=== PATIENT | male | born 1940 | race Caucasian/White ===

== ENCOUNTER 2017-09-06 08:30 | Inpatient (IN) | payer MEDICARE, OTHER ==
[~2017-09-06] VITALS: Ht 190.5 cm; Wt 110.0 kg
[~2017-09-06 08:30] MED LIST: AMLO5TAB2 PO; CYCL10TA PO; FISH500C PO; HYDR-3580 PO; IODI150T PO; MAPA325T PO; OCUVTAB4 PO; VIAG100T PO; VITA1CAP7 PO; VITA400T20 PO; VITACAP7 PO
[2017-10-07] VITALS (8 sets, daily range): BP systolic 123–152; BP diastolic 62–98; PULSE 72–83; RESP 16–18; TEMP 97.4; O2SAT 95–96
[2017-10-07 09:18] LABS: AUTOMATED NEUTROPHIL # 5.3 TH/MM3 (1.8-7.7); BASOPHIL # 0.1 TH/MM3 (0-0.2); BASOPHIL % 0.7 % (0.0-2.0); EOSINOPHIL # 0.2 TH/MM3 (0-0.4); HEMATOCRIT 44.6 % (39.0-51.0); HEMOGLOBIN 15.2 GM/DL (13.0-17.0); LYMPH % 32.8 % (9.0-44.0); LYMPHOCYTE # 3.1 TH/MM3 (1.0-4.8); MEAN CORPUSCULAR HGB CONC 34.1 % (32.0-36.0); MONO % 9.4 % (0.0-8.0); MONOCYTE # 0.9 TH/MM3 (0-0.9); NEUT % 55.1 % (16.0-70.0); PLATELET COUNT 201 TH/MM3 (150-450); RED BLOOD COUNT 5.07 MIL/MM3 (4.50-5.90); RED CELL DISTRIBUTION WIDTH 13.6 % (11.6-17.2); WHITE BLOOD COUNT 9.6 TH/MM3 (4.0-11.0)
[2017-10-07 09:30] LABS: PROTHROMBIN TIME - PATIENT 10.1 SEC (9.8-11.6)
[2017-10-07] MEDS ORDERED: LACTATED RINGER'S 1000 ML IV PRN (09:30)
[2017-10-07] MEDS ORDERED: CHLORHEXIDINE GLUCONATE 2 % 1 PACK (2 CLOTHS) TOPICAL PRN (09:30)
[2017-10-07] MEDS ORDERED: POVIDONE IODINE 5% (ANTISEPSIS KIT) 4 APPLICATIONS EACH NARE PRN (09:30)
[2017-10-07] MEDS ORDERED: ceFAZolin 1,000 MG/NS 100 ML IV SCH ×2 (09:30)
[2017-10-07] MEDS ORDERED: METOPROLOL TARTRATE 25 MG TAB PO PRN (09:30)
[2017-10-07] MEDS ORDERED: SODIUM CHLORID 0.9% 500 ML IV PRN (09:30)
[2017-10-07 09:34] LABS: ALBUMIN 3.8 GM/DL (3.4-5.0); AST (GOT) 20 U/L (15-37); BICARBONATE 28.5 MEQ/L (21.0-32.0); BLOOD UREA NITROGEN 15 MG/DL (7-18); CALCIUM 8.8 MG/DL (8.5-10.1); CHLORIDE 105 MEQ/L (98-107); CREATININE 1.06 MG/DL (0.60-1.30); GLOMERULAR FILTRATION RATE 68 ML/MIN (>89); GLUCOSE,RANDOM 100 MG/DL (74-106); SODIUM (NA) 140 MEQ/L (136-145)
[2017-10-07 09:35] LABS: ALT (GPT) 27 U/L (12-78)
[2017-10-07 09:37] LABS: ALKALINE PHOSPHATASE 124 U/L (45-117); TOTAL BILIRUBIN ADULT 0.5 MG/DL (0.2-1.0); TOTAL PROTEIN 7.7 GM/DL (6.4-8.2)
[2017-10-07] MEDS ORDERED: PROTAMINE SULFATE 50 MG/5 ML VIAL ONE (11:58)
[2017-10-07] MEDS ORDERED: HEPARIN SODIUM - IV 10,000 UNITS/10 ML VIAL ONE (11:58)
[2017-10-07] MEDS ORDERED: BUPIVACAINE/EPINEPHRINE 0.5% PF 30 ML VIAL ONE (11:59)
[2017-10-07] MEDS ORDERED: ACETAMINOPHEN 1000 MG/100 ML 100 ML IV ONE (11:59)
[2017-10-07] MEDS ORDERED: HEPARIN SODIUM - SQ 10,000 UNITS/ML VIAL ONE (11:59)
[2017-10-07] MEDS ORDERED: DEXAMETHASONE SOD PHOS 4 MG/ML VIAL IV ONE (12:00)
[2017-10-07] MEDS ORDERED: PHENYLEPH/NS 1000 MCG/10 ML SYR IV ONE (12:00)
[2017-10-07] MEDS ORDERED: LIDOCAINE HCL 1% PF 5 ML SYRINGE OTHER ONE (12:00)
[2017-10-07] MEDS ORDERED: NEOSTIGMINE 5 MG/5 ML SYRINGE IV PUSH ONE (12:00)
[2017-10-07] MEDS ORDERED: SOD CH 0.9%(ARTERIAL)500ML INJ 500 ML ONE (12:00)
[2017-10-07] MEDS ORDERED: GLYCOPYRROLATE 1 MG/5 ML SYRINGE IV PUSH ONE (12:00)
[2017-10-07] MEDS ORDERED: PROPOFOL 200 MG/20 ML AMP IV ONE (12:00)
[2017-10-07] MEDS ORDERED: ROCURONIUM INJ 50 MG/5 ML SYRINGE IV PUSH ONE (12:00)
[2017-10-07] MEDS ORDERED: ePHEDrine/NS 25 MG/5 ML SYRINGE IV ONE (12:00)
[2017-10-07] MEDS ORDERED: NORMOSOL R INJ 2,000 ML IV ONE (12:00)
[2017-10-07] MEDS ORDERED: PHENYLEPHRINE HCL 10 MG/ML VIAL IV ONE (12:00)
[2017-10-07] MEDS ORDERED: IOHEXOL 350 MG/ML 100 ML BTL (for RAD DIAG) OTHER ONE (13:21)
[2017-10-07] MEDS ORDERED: MIDAZOLAM HCL 2 MG/2 ML VIAL ONE (15:06)
[2017-10-07] MEDS ORDERED: DO NOT ADM ANY ANTICOAGULANT DRUGS PRN (15:29)
[2017-10-07] MEDS ORDERED: *ONDANSETRON 4 MG VIAL PERIprocedural Use ONLY ONE (16:08)
--- NOTE | 2017-10-07 16:40 | EKG ---
Date Performed: 10/07/2017 Time Performed: 08:45:30 PTAGE: 76 years EKG: Sinus rhythm with frequent multifocal PVCs with 1st degree A-V block. Inferior T wave changes are nonspecific Abn ormal ECG PREVIOUS TRACING : 08/01/2015 10.41 Since previous tracing, no significant change noted DOCTOR: Víctor Tripp Interpretating Date/Time 10/07/2017 16:39:50
[2017-10-07] MEDS ORDERED: MORPHINE SULFATE 2 MG/ML INJ IV PUSH PRN (16:45)
[2017-10-07] MEDS ORDERED: METOPROLOL TARTRATE 5 MG/5 ML VIAL IV PUSH PRN (16:45)
[2017-10-07] MEDS ORDERED: VIAGRA 100 MG PO PRN (16:45)
[2017-10-07] MEDS ORDERED: ONDANSETRON HCL 4 MG/2 ML VIAL IV PUSH PRN (16:45)
[2017-10-07] MEDS ORDERED: LACTATED RINGER'S 1000 ML INJ 500 ML IV ONE (17:00)
[2017-10-07] MEDS ORDERED: ACETAMINOPHEN/HYDROcodone 325 MG/7.5 MG TAB PO PRN (17:45)
[2017-10-08] VITALS (14 sets, daily range): BP systolic 126–151; BP diastolic 66–75; PULSE 75–101; RESP 16; TEMP 97.6–98.1; O2SAT 93–96
[2017-10-08] MEDS ORDERED: ASPIRIN 81 MG CHEW TAB PO SCH (09:00)
[2017-10-08] MEDS ORDERED: amLODIPine BESYLATE 5 MG TAB PO SCH (09:00)
--- NOTE | 2017-10-11 14:44 | MP ---
cc: LILY LINCOLN M.D., JAMES DATE OF SURGERY 10/11/2017 PREOPERATIVE DIAGNOSIS Abdominal aortic aneurysm. POSTOPERATIVE DIAGNOSIS Abdominal aortic aneurysm. PROCEDURE Percutaneous endovascular aneurysm repair. SURGEON Vasile Rodriguez MD ANESTHESIA General. DESCRIPTION OF THE OPERATIVE PROCEDURE With the patient in the supine position, general anesthesia was induced, the lower abdomen, both groins and thighs prepped with Betadine and draped in a sterile fashion. One gram of Ancef was administered intravenously and, following a protocol time-out, the skin and subcutaneous tissue overlying and surrounding the right and left mid-common femoral arteries preemptively infiltrated with 0.5% Marcaine with epinephrine. The common femoral arteries were accessed identically as follows: Utilizing ultrasound guidance, 18 gauge needles were inserted in each mid-common femoral lumen, J-wires advanced under fluoroscopic guidance through the external iliac arteries and 7-Ivorian hemostatic sheaths deployed bilaterally. Angled glide wires were advanced under fluoroscopic guidance into the suprarenal aorta. Perclose devices were pre-positioned at the 10 and 2 o'clock positions bilaterally. The 7-Ivorian hemostatic sheaths were redeployed. The angled glide wires were exchanged for Amplatz guidewires which were parked within the thoracic aorta. An 18 and 12-Ivorian hemostatic dry seal sheaths were deployed via the right and left common femoral approaches respectively. A pigtail catheter was guided via the left femoral sheath into the suprarenal aorta and flush aortogram accurately delineated the origin of the renal arteries. The main body endoprosthesis was then position and initially deployed immediately distal to the renal arteries. The contralateral gate was engaged with an angled glide Berenstein correction with an angled glide Berenstein catheter combination. A 250 balloon was inflated within the endoprosthetic lumen to ensure intraluminal localization. The pigtail catheter was replaced via the left femoral sheath into the endoprosthetic lumen and retrograde left iliac arteriogram identified the left iliac bifurcation and allowed for appropriate length measurements for the contralateral limb. The contralateral limb was then introduced and deployed. The aortic deployment was completed, followed by placement of a right external progression followed by placement of a right iliac limb extension after retrograde right iliac angiogram identified the right iliac bifurcation and allowed for appropriate limb bellows tester length selection. The aortic, iliac seal areas and overlap regions were then gently balloon dilated with a 250 balloon. Completion angiogram revealed no technical defects or endoleaks. It should be noted that after placement of the hemostatic sheath, the patient was systemically heparinized with 5000 units. At the completion of the procedure heparin was reversed with 20 mg of protamine. The right and left femoral sheaths were removed and the pre-deployed Perclose devices activated with secure hemostasis bilaterally. Doppler flow remained unchanged within the pedal arteries. The patient was returned to the recovery room in stable condition having tolerated the procedure well. Kai Rodriguez MD JTS/SSB /12:48 PM /1:05 PM
== END 2017-10-08 13:02 | disposition home or self-care (01) | DRG 269 ==
LOC: HSDI 10-07 08:14 → HCPC 10-07 16:57
PROVIDERS: ADMIT Surgery Vascular Surgery; ATTEND Surgery Vascular Surgery
PROC: B41G1ZZ Fluoroscopy of Left Lower Extremity Arteries using Low Osmolar Contrast (ICD-10-PCS; 2017-10-07)
PROC: 04V03DZ Restriction of Abdominal Aorta with Intraluminal Device, Percutaneous Approach (ICD-10-PCS; principal; 2017-10-07 12:31)
PROC: B4101ZZ Fluoroscopy of Abdominal Aorta using Low Osmolar Contrast (ICD-10-PCS; 2017-10-07 12:31)
DX: I71.4 Abdominal aortic aneurysm, without rupture (principal); I10 Essential (primary) hypertension; E78.5 Hyperlipidemia, unspecified; Z87.891 Personal history of nicotine dependence
CPT/HCPCS: 76937; 80053; 85025; 85610; 85730; 86850; 86900; 86901; 93005; C1725; C1769; J0131; J0690; J1100; J1644; J2250; J2370; J2405; J2710; J2720; J3010; J7040; J7120; Q9967

== ENCOUNTER 2018-02-03 07:44 | Inpatient (IN) | payer MEDICARE, OTHER ==
[~2018-02-03] VITALS: Ht 190.5 cm; Wt 99.0 kg
[2018-02-03] VITALS (8 sets, daily range): BP systolic 128–175; BP diastolic 64–91; PULSE 73–109; RESP 16–24; TEMP 97.5–97.8; O2SAT 97–98
--- NOTE | 2018-02-03 08:13 | PD ---
HPI Chief Complaint: Neuro Symptoms/ Deficits Time Seen by Provider: 07:52 Travel History International Travel<30 days: No Contact w/Intl Traveler<30days: No Traveled to known affect area: No History of Present Illness HPI This patient went to bed feeling his usual self. He woke up at 3:30 AM and reported that he could not move his left arm or his left leg. He says he laid there for about 1 hour and then he started to improve. He still has weakness of the left arm and leg but he can move them now. He reports that he had some slurring of speech. He denies headache or head injury. No prior history of stroke. He supposed to be taking a baby aspirin daily but says he is very noncompliant and does not like to take it. He last took it 4 days ago. No chest pain. Symptom severity is moderately severe. No alleviating factors. No exacerbating factors. Duration is unknown as it happened during sleep. It has been 4-1/2 hours since he woke up with the symptoms. He does not meet stroke alert criteria PFSH Past Medical History Arthritis: Yes (BACK AND KNEES) Asthma: No Autoimmune Disease: No Heart Rhythm Problems: Yes (ECTOPIC BEATS) Cancer: No Cardiac Catheterization: Yes Cardiovascular Problems: Yes (CAD, HX OF MS 2004, IRREGULAR HEARTBEAT, MULTI ETOPIC BEATS) High Cholesterol: Yes Chest Pain: Yes COPD: No Diabetes: No Endocrine: No Genitourinary: No Hepatitis: No Hiatal Hernia: No Hypertension: Yes Immune Disorder: No Musculoskeletal: Yes (UNSTABLE GAIT, SEVERE OSTEOARTHRITIS, SPINAL STENOSIS, ESTEFANI CERVICAL SPINE) Neurologic: Yes (NEUROPATHY LEGS AND FEET, TREMORS MORE ON RIGHT HAND) Psychiatric: Yes (CLAUSTROPHOBIC FOR MRI) Reproductive: Yes (ED) Respiratory: Yes (SLEEP APNEA NO MACHINE) Sleep Apnea: Yes Thyroid Disease: No Influenza Vaccination: Yes Past Surgical History Abdominal Surgery: Yes (AAA, GRAFTED SEP 2017) AICD: No Body Medical Devices: LAD CARDIAC STENT Cardiac Surgery: Yes (LAD CARDIAC STENT 2004, HEART CATH) Ear Surgery: No Endocrine Surgery: No Eye Surgery: No Genitourinary Surgery: No Joint Replacement: No Oral Surgery: Yes (TONSILLECTOMY 1952) Pacemaker: No Thoracic Surgery: No Tonsillectomy: Yes Other Surgery: Yes Social History Alcohol Use: Yes (OCCASIONALLY) Tobacco Use: No (QUIT 2004) Substance Use: No Allergies-Medications (Allergen,Severity, Reaction): Coded Allergies: niacin (Unverified Adverse Reaction, Severe, 10/07/17) PATIENT DOES NOT LIKE TO TAKE atorvastatin (Unverified Adverse Reaction, Mild, 10/07/17) PATIENT DOES NOT LIKE TO TAKE fenofibrate (Unverified Adverse Reaction, Mild, 10/07/17) PATIENT DOES NOT LIKE TO TAKE metoprolol (Unverified Adverse Reaction, Mild, 10/07/17) PATIENT DOES NOT LIKE TO TAKE pravastatin (Unverified Adverse Reaction, Mild, 10/07/17) PATIENT DOES NOT LIKE TO TAKE simvastatin (Unverified Adverse Reaction, Mild, 10/07/17) PATIENT DOES NOT LIKE TO TAKE Reported Meds & Prescriptions Reported Meds & Active Scripts Active Reported B Complex (B-Complex Vitamins) 1 Cap 1 Cap PO DAILY Flexeril (Cyclobenzaprine HCl) 10 Mg Tab 10 Mg PO TID PRN Vitamin A (Vitamin A Palmitate) 10,000 Unit Capsule 1 Cap PO DAILY Mapap (Acetaminophen) 325 Mg Tab 325 Mg PO Q4-6H PRN Fish Oil ([place]-3 Fatty Acids) 60 Mg-90 Mg-500 Mg Cap 1 Cap PO DAILY Preservision Areds (Multiple Vitamins W/ Minerals) 1 Tab 1 Tab PO DAILY Kelp (Iodine) 150 Mcg Tablet 1 Tab PO DAILY Viagra (Sildenafil Citrate) 100 Mg Tab 100 Mg PO DAILY PRN Vitamin E (Vitamin E Mixed) 400 Unit Tablet 800 Unit PO DAILY Hydrocodone-Acetaminophen 7.5 Mg-325 Mg Tab 1 Tab PO Q4H PRN Amlodipine (Amlodipine Besylate) 5 Mg Tab 5 Mg PO DAILY Review of Systems General / Constitutional: No: Fever Eyes: No: Visual changes HENT: No: Headaches Cardiovascular: No: Chest Pain or Discomfort Respiratory: No: Shortness of Breath Gastrointestinal: No: Abdominal Pain Genitourinary: No: Dysuria Musculoskeletal: No: Pain Skin: No Rash Neurologic: Positive: Weakness, Slurred Speech Psychiatric: No: Depression Endocrine: No: Polydipsia Hematologic/Lymphatic: No: Easy Bruising Physical Exam Narrative GENERAL: Well-nourished, well-developed patient in no apparent distress. SKIN: Focused skin assessment reveals no rash and nodules. Skin is Warm and dry. HEAD: Atraumatic. Normocephalic. EYES: Pupils equal and round. No scleral icterus. No injection or drainage. ENT: No nasal bleeding or discharge. Mucous membranes pink and moist. NECK: Trachea midline. No JVD. CARDIOVASCULAR: Regular rate and rhythm. Frequent ectopic beats noted. No murmur appreciated. RESPIRATORY: No accessory muscle use. Clear to auscultation. Breath sounds equal bilaterally. GASTROINTESTINAL: Abdomen soft, non-tender, nondistended. Hepatic and splenic margins not palpable. MUSCULOSKELETAL: No obvious deformities. No clubbing. No cyanosis. No edema. NEUROLOGICAL: Awake and alert. Has a left-sided facial droop. Motor exam and demonstrates weakness of the left arm and left leg. Understandable speech. Sensation subjectively intact. PSYCHIATRIC: Appropriate mood and affect; insight and judgment normal. Data Data Last Documented VS Vital Signs Date Time Temp Pulse Resp B/P (MAP) Pulse Ox O2 Delivery O2 Flow Rate FiO2 02/03/18 11:15 80 21 155/91 (112) 98 Nasal Cannula 2.00 02/03/18 08:02 97.5 Orders Orders Electrocardiogram (02/03/18 08:01) Prothrombin Time / Inr (Pt) (02/03/18 08:01) Act Partial Throm Time (Ptt) (02/03/18 08:01) Complete Blood Count With Diff (02/03/18 08:01) Basic Metabolic Panel (Bmp) (02/03/18 08:01) Ct Brain W/O Iv Contrast(Rout) (02/03/18 08:01) Ecg Monitoring (02/03/18 08:01) Iv Access Insert/Monitor (02/03/18 08:01) Oximetry (02/03/18 08:01) Sodium Chloride 0.9% Flush (Ns Flush) (02/03/18 08:15) Aspirin (Aspirin) (02/03/18 10:00) Admit To Inpatient (02/03/18 ) Vital Signs (Adult) Q4H (02/03/18 12:16) Nih Stroke Scale - Nihss .On admission and discharge (02/03/18 12:16) Neuro Checks Q4H (02/03/18 12:16) Notify Dr: Other (02/03/18 12:16) Ot Request For Service (02/03/18 12:16) Consult Pt Eval & Treat (02/03/18 12:16) Speech Therapy Consult-Eval/Tx (02/03/18 12:16) Case Management Consult (02/03/18 ) Activity Bed Rest (02/03/18 12:16) Nursing Bedside Swallow Assess .ONCE (02/03/18 12:16) Scd Bilateral/Knee High ANTHONY.QSHIFT (02/03/18 12:16) Diet Npo (02/03/18 Lunch) Hemoglobin (Hgb) A1c (02/03/18 12:16) Lipid Profile (02/04/18 06:00) Us Carotid Arteries Comp Bilat (02/03/18 ) Mra Brain W/O Contrast (Cow) (02/03/18 ) Mri Brain W/O Contrast (02/03/18 ) Echo 2d Comp With Doppler (02/03/18 ) Resp Oxygen Nc Stroke (02/03/18 ) ^ Hold Medication (02/03/18 12:16) Consult Neurology (02/03/18 ) Sodium Chloride 0.9% Flush (Ns Flush) (02/03/18 21:00) Sodium Chloride 0.9% Flush (Ns Flush) (02/03/18 12:30) Enalaprilat Inj (Vasotec Inj) (02/03/18 12:30) Aspirin Chew (Aspirin Chew) (02/04/18 09:00) Enoxaparin Inj (Lovenox Inj) (02/03/18 20:00) Bedside Glucose ANTHONY.CSUGAR (02/03/18 12:16) ^ Discontinue Insulin Orders (02/03/18 12:16) Insulin Aspart Supplemtl Scale (Novolog (02/03/18 17:00) Dextrose 50% In Kyle (Vial) Inj (D50w (Vi (02/03/18 12:30) Glucagon Inj (Glucagon Inj) (02/03/18 12:30) Consult Rehab Medicine (02/03/18 12:16) Anthropology Faculty Member / Telemetry ANTHONY.Q8H (02/03/18 12:16) Consult Stroke Navigator (02/03/18 ) Inpatient Certification (02/03/18 ) (Hub Use Only)Inp Phy Cons/Ref (02/03/18 ) (Hub Use Only)Inp Phy Cons/Ref (02/03/18 ) Labs Laboratory Tests Test 02/03/18 07:55 White Blood Count 7.9 TH/MM3 Red Blood Count 5.53 MIL/MM3 Hemoglobin 16.2 GM/DL Hematocrit 47.7 % Mean Corpuscular Volume 86.3 FL Mean Corpuscular Hemoglobin 29.2 PG Mean Corpuscular Hemoglobin Concent 33.9 % Red Cell Distribution Width 13.9 % Platelet Count 170 TH/MM3 Mean Platelet Volume 9.5 FL Neutrophils (%) (Auto) 67.9 % Lymphocytes (%) (Auto) 24.3 % Monocytes (%) (Auto) 5.8 % Eosinophils (%) (Auto) 1.5 % Basophils (%) (Auto) 0.5 % Neutrophils # (Auto) 5.4 TH/MM3 Lymphocytes # (Auto) 1.9 TH/MM3 Monocytes # (Auto) 0.5 TH/MM3 Eosinophils # (Auto) 0.1 TH/MM3 Basophils # (Auto) 0.0 TH/MM3 CBC Comment DIFF FINAL Differential Comment Prothrombin Time 10.6 SEC Prothromb Time International Ratio 1.0 RATIO Activated Partial Thromboplast Time 24.9 SEC Blood Urea Nitrogen 19 MG/DL Creatinine 1.11 MG/DL Random Glucose 150 MG/DL Calcium Level 9.1 MG/DL Sodium Level 141 MEQ/L Potassium Level 4.4 MEQ/L Chloride Level 106 MEQ/L Carbon Dioxide Level 27.3 MEQ/L Anion Gap 8 MEQ/L Estimat Glomerular Filtration Rate 64 ML/MIN MDM Medical Decision Making Medical Screen Exam Complete: Yes Emergency Medical Condition: Yes Medical Record Reviewed: Yes Differential Diagnosis Ischemic CVA, hemorrhagic CVA, TIA Narrative Course I have reviewed the patient's electronic medical record. Patient was here in September 2017 and had stenting of AAA Patient's presentation is consistent with acute stroke. However he does not meet stroke alert criteria. I reviewed his EKG which shows sinus rhythm with PVCs. I have ordered labs and brain scan Brain scan is negative Other labs are reviewed I gave him an aspirin Patient will require admission for acute ischemic stroke I reviewed with medical residents Multiple rechecks done and repeat neurologic evaluations done Critical Care Narrative Aggregate critical care time was 34 minutes. Time to perform other separately billable procedures was not included in the critical care time. My time did not include minutes spent treating any other patients simultaneously or on activities that did not directly contribute to the patient's treatment. The services I provided to this patient were to treat and/or prevent clinically significant deterioration that could result in: Permanent neurologic deficit, brain stem herniation, cardiopulmonary arrest I provided critical care services requiring my management, as noted below: Chart data review, documentation time, medication orders and management, vital sign assessments/reviewing monitor data, ordering and reviewing lab tests, ordering and interpreting/reviewing x-rays and diagnostic studies, care of the patient and discussion of the patient with the admitting physicians. Diagnosis Primary Impression: Acute ischemic stroke Admitting Information Admitting Physician Requests: it Charlie Sherman MD February 03, 2018 08:13
[2018-02-03] MEDS ORDERED: SODIUM CHLORIDE 0.9% FLUSH 10 ML FLUSH IVF PRN (08:15)
[2018-02-03 08:25] LABS: AUTOMATED NEUTROPHIL # 5.4 TH/MM3 (1.8-7.7); BASOPHIL % 0.5 % (0.0-2.0); EOSINOPHIL # 0.1 TH/MM3 (0-0.4); EOSINOPHIL % 1.5 % (0.0-4.0); HEMATOCRIT 47.7 % (39.0-51.0); HEMOGLOBIN 16.2 GM/DL (13.0-17.0); LYMPH % 24.3 % (9.0-44.0); LYMPHOCYTE # 1.9 TH/MM3 (1.0-4.8); MEAN CELL VOLUME 86.3 FL (80.0-100.0); MEAN CORPUSCULAR HEMOGLOBIN 29.2 PG (27.0-34.0); MEAN CORPUSCULAR HGB CONC 33.9 % (32.0-36.0); MEAN PLATELET VOLUME 9.5 FL (7.0-11.0); MONO % 5.8 % (0.0-8.0); MONOCYTE # 0.5 TH/MM3 (0-0.9); NEUT % 67.9 % (16.0-70.0); PLATELET COUNT 170 TH/MM3 (150-450); RED BLOOD COUNT 5.53 MIL/MM3 (4.50-5.90); RED CELL DISTRIBUTION WIDTH 13.9 % (11.6-17.2); WHITE BLOOD COUNT 7.9 TH/MM3 (4.0-11.0)
[2018-02-03 08:49] LABS: PROTHROMBIN TIME - PATIENT 10.6 SEC (9.8-11.6)
[2018-02-03 08:54] LABS: BICARBONATE 27.3 MEQ/L (21.0-32.0); CALCIUM 9.1 MG/DL (8.5-10.1); CREATININE 1.11 MG/DL (0.60-1.30)
--- NOTE | 2018-02-03 09:23 | RADRPT ---
EXAM DATE/TIME: 02/03/2018 08:49 [facility] COMPARISON: No previous studies available for comparison. INDICATIONS : Syncope today, left sided weakness. RADIATION DOSE: 49.96 CTDIvol (mGy) MEDICAL HISTORY : Cardiovascular disease. Hypertension. AAA SURGICAL HISTORY : AAA repair ENCOUNTER: Initial ACUITY: 1 day PAIN SCALE: 0/10 LOCATION: cranial TECHNIQUE: Multiple contiguous axial images were obtained of the head. Using automated exposure control and adj ustment of the mA and/or kV according to patient size, radiation dose was kept as low as reasonably a chievable to obtain optimal diagnostic quality images. DICOM format image data is available electro nically for review and comparison. FINDINGS: CEREBRUM: The ventricles are normal for age. No evidence of midline shift, mass lesion, hemorrhage or acute in farction. No extra-axial fluid collections are seen. POSTERIOR FOSSA: The cerebellum and brainstem are intact. The 4th ventricle is midline. The cerebellopontine angle i s unremarkable. EXTRACRANIAL: The visualized portion of the orbits is intact. SKULL: The calvaria is intact. No evidence of skull fracture. CONCLUSION: Normal examination for a patient of this age. Larry Rodriguez MD on February 03, 2018 at 9:15 Board Certified Radiologist. This report was verified electronically.
[2018-02-03] MEDS ORDERED: ASPIRIN 325 MG TAB PO ONE (10:00)
--- NOTE | 2018-02-03 12:14 | HHI.HP ---
[facility] Service Family Medicine Primary Care Physician Phyllis Lizarraga MD Admission Diagnosis Diagnoses: International Travel<30 Days: No Contact w/Intl Traveler<30days: No Known Affected Area: No History of Present Illness 77 yo M with PMH of CAD w/ OH in 2004, AAA graft in September of 2017, osteoarthritis, spinal stenosis presenting to ED after he woke up at 3:30 AM and reported that he could not move his left arm or his left leg. He was unable to walk at that time. He states his R side was weak as well, but that gradually improved over the next several hours. L side has continued to be weak. Believes his R side is back at baseline. He reports that he had some slurring of speech. He denies headache or head injury. He does endorse double vision - improved with closing his R eye. No chest pain, SOB. No prior history of stroke. Has had some dizziness since his AAA repair in September. He is supposed to be taking a baby aspirin daily but says he is very noncompliant and does not like to take it. He last took it 4 days ago. (Wilberto Nogueira MD R1) Review of Systems Constitutional: COMPLAINS OF: Dizziness, DENIES: Fever, Chills Eyes: COMPLAINS OF: Vision loss (macular degeneration), Double Vision, DENIES: Eye pain Ears, nose, mouth, throat: DENIES: Tinnitus, Throat pain, Running Nose Respiratory: COMPLAINS OF: Cough (chronic), Wheezing (chronic), Sputum production (chronic) Cardiovascular: DENIES: Chest pain, Palpitations Gastrointestinal: COMPLAINS OF: Black stools (chronic), Bloody stools (states it is chronic. ), DENIES: Abdominal pain, Nausea, Vomiting Genitourinary: DENIES: Hematuria, Dysuria Musculoskeletal: DENIES: Joint pain, Muscle aches Neurologic: COMPLAINS OF: Localized weakness, DENIES: Headache, Paresthesias, Seizures Psychiatric: DENIES: Confusion (Wilberto Nogueira MD R1) Past Family Social History Past Medical History CAD with OH in 2004 AAA repair in September 2017 Ectopic beats Osteoarthritis Spinal stenosis Peripheral neuropathy Macular degeneration bilaterally Past Surgical History AAA graft in September 2017 LAD cardiac stent in 2004 Tonsillectomy (Wilberto Nogueira MD R1) Allergies: Coded Allergies: niacin (Unverified Adverse Reaction, Severe, 10/07/17) PATIENT DOES NOT LIKE TO TAKE atorvastatin (Unverified Adverse Reaction, Mild, 10/07/17) PATIENT DOES NOT LIKE TO TAKE fenofibrate (Unverified Adverse Reaction, Mild, 10/07/17) PATIENT DOES NOT LIKE TO TAKE metoprolol (Unverified Adverse Reaction, Mild, 10/07/17) PATIENT DOES NOT LIKE TO TAKE pravastatin (Unverified Adverse Reaction, Mild, 10/07/17) PATIENT DOES NOT LIKE TO TAKE simvastatin (Unverified Adverse Reaction, Mild, 10/07/17) PATIENT DOES NOT LIKE TO TAKE Family History Unsure Social History Lives at home alone 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 Notable slurred speech SKIN: No rashes, ecchymoses or lesions. Cool and dry. HEAD: Atraumatic. Normocephalic. No temporal or scalp tenderness. EYES: Pupils equal round and reactive. Extraocular motions intact. No scleral icterus. No injection or drainage. ENT: Nose without bleeding, purulent drainage or septal hematoma. Throat without erythema, tonsillar hypertrophy or exudate. Uvula midline. Airway patent. NECK: Trachea midline. No JVD or lymphadenopathy. Supple, nontender, no meningeal signs. CARDIOVASCULAR: Irregularly irregular with no murmurs appreciated RESPIRATORY: Clear to auscultation. Breath sounds equal bilaterally. No wheezes , rales, or rhonchi. GASTROINTESTINAL: Abdomen soft, non-tender, nondistended. No hepato-splenomegaly , or palpable masses. No guarding. MUSCULOSKELETAL: Extremities without clubbing, cyanosis, or edema. No joint tenderness, effusion, or edema noted. No calf tenderness. Negative Homans sign bilaterally. NEUROLOGICAL: Awake and alert. Patient noted to have asymmetric smile with left facial droop. Decreased orbicularis oculi strength on the left. Decreased sensation in the V3 trigeminal nerve branch on the left. Weak shoulder shrug on the left. 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 He is able to lift the left arm/leg passively but is weak against resistance. Five out of 5 muscle strength on the right. Sensation is intact and equal in the bilateral extremities. Slurred speech but is answering questions appropriately. Laboratory Laboratory Tests Test 02/03/18 07:55 White Blood Count 7.9 Red Blood Count 5.53 Hemoglobin 16.2 Hematocrit 47.7 Mean Corpuscular Volume 86.3 Mean Corpuscular Hemoglobin 29.2 Mean Corpuscular Hemoglobin Concent 33.9 Red Cell Distribution Width 13.9 Platelet Count 170 Mean Platelet Volume 9.5 Neutrophils (%) (Auto) 67.9 Lymphocytes (%) (Auto) 24.3 Monocytes (%) (Auto) 5.8 Eosinophils (%) (Auto) 1.5 Basophils (%) (Auto) 0.5 Neutrophils # (Auto) 5.4 Lymphocytes # (Auto) 1.9 Monocytes # (Auto) 0.5 Eosinophils # (Auto) 0.1 Basophils # (Auto) 0.0 CBC Comment DIFF FINAL Differential Comment Prothrombin Time 10.6 Prothromb Time International Ratio 1.0 Activated Partial Thromboplast Time 24.9 Blood Urea Nitrogen 19 Creatinine 1.11 Random Glucose 150 Calcium Level 9.1 Sodium Level 141 Potassium Level 4.4 Chloride Level 106 Carbon Dioxide Level 27.3 Anion Gap 8 Estimat Glomerular Filtration Rate 64 (Wilberto Nogueira MD R1) Result Diagram: 02/03/18 0755 02/03/18 0755 Imaging Last [address] 02/03/18 0801 Signed Impressions: Service Date/Time: Saturday, February 03, 2018 08:49 - CONCLUSION: Normal examination for a patient of this age. Larry Rodriguez MD (Wilberto Nogueira MD R1) Caprini VTE Risk Assessment Caprini VTE Risk Assessment: Mod/High Risk (score >= 2) Caprini Risk Assessment Model Point Value = 1 Point Value = 2 Point Value = 3 Point Value = 5 Age 41-60 Minor surgery BMI > 25 kg/m2 Swollen legs Varicose veins or History of unexplained or recurrent spontaneous Oral contraceptives or hormone replacement Sepsis (< 1 month) Serious lung disease, including pneumonia (< 1 month) Abnormal pulmonary function Acute myocardial infarction Congestive heart failure (< 1 month) History of inflammatory bowel disease Medical patient at bed rest Age 61-74 Arthroscopic surgery Major open surgery (> 45 min) Laparoscopic surgery (> 45 min) Malignancy Confined to bed (> 72 hours) Immobilizing plaster cast Central venous access Age >= 75 History of VTE Family history of VTE Factor V Leiden Prothrombin [id number] Lupus anticoagulant Anticardiolipin antibodies Elevated serum homocysteine Heparin-induced thrombocytopenia Other congenital or acquired thrombophilia Stroke (< 1 month) Elective arthroplasty Hip, pelvis, or leg fracture Acute spinal cord injury (< 1 month) Prophylaxis Regimen Total Risk Factor Score Risk Level Prophylaxis Regimen 0-1 Low Early ambulation 2 Moderate Order ONE of the following: *Sequential Compression Device (SCD) *Heparin 5000 units SQ BID 3-4 Higher Order ONE of the following medications: *Heparin 5000 units SQ TID *Enoxaparin/Lovenox 40 mg SQ daily (WT < 150 kg, CrCl > 30 mL/min) *Enoxaparin/Lovenox 30 mg SQ daily (WT < 150 kg, CrCl > 10-29 mL/min) *Enoxaparin/Lovenox 30 mg SQ BID (WT < 150 kg, CrCl > 30 mL/min) AND/OR *Sequential Compression Device (SCD) 5 or more Highest Order ONE of the following medications: *Heparin 5000 units SQ TID (Preferred with Epidurals) *Enoxaparin/Lovenox 40 mg SQ daily (WT < 150 kg, CrCl > 30 mL/min) *Enoxaparin/Lovenox 30 mg SQ daily (WT < 150 kg, CrCl > 10-29 mL/min) *Enoxaparin/Lovenox 30 mg SQ BID (WT < 150 kg, CrCl > 30 mL/min) AND *Sequential Compression Device (SCD) (Wilberto Nogueira MD R1) Assessment and Plan Assessment and Plan 77-year-old male with history of CAD status post OH in 2004, AAA graft placed in September 2017, ectopic heart beats who is presenting to the ED after waking from sleep with both left-sided and right-sided weakness. Right-sided weakness resolved but has had persistent left-sided weakness, left-sided facial droop, slurred speech with some cranial nerve deficiencies. CT head on admission negative for acute bleed. Will admit for stroke workup Code Status DNR Discussed Condition With Dr. Stu Alvarez (Wilberto Nogueira MD R1) Problem List: (1) CVA (cerebral vascular accident) ICD Codes: I63.9 - Cerebral infarction, unspecified Plan: Patient awoke at 0330 on the morning of presentation with both right and left extremity weakness, slurred speech. Right-sided weakness resolved but has had persistent left-sided weakness, slurred speech, facial droop and cranial nerve deficiencies CT on admission was negative for hemorrhagic stroke Concern for acute ischemic stroke versus TIA Consulting neurology Received aspirin in the ED, has been poorly compliant with daily aspirin as an outpatient MRI brain, MRA brain, echocardiogram, ultrasound carotid arteries pending Consulting PT/OT, speech therapy We will keep n.p.o. until patient passes swallow study Placing on telemetry Scheduling aspirin daily, Lovenox 1 mg/kg twice daily Lipid panel, hemoglobin A1c pending Stroke precautions, neuro checks ordered (2) CAD (coronary artery disease) ICD Codes: I25.10 - Atherosclerotic heart disease of [place] coronary artery without angina pectoris Plan: Known history of CAD status post OH in 2004 As allergies to multiple statin regimens Has been prescribed aspirin daily but patient states he is poorly compliant with this Resuming aspirin daily, lipid panel pending No ST changes noted on admission EKG Denies chest pain on admission (3) S/P AAA repair ICD Codes: Z98.890 - Other specified postprocedural states; Z86.79 - Personal history of other diseases of the circulatory system Plan: Patient with AAA graft placed in September 2017 Workup as above. No further management at this time (4) Ectopic heartbeat ICD Codes: I49.49 - Other premature depolarization Plan: Patient with a known history of ectopic heartbeat EKG on admission confirms this, irregular heartbeat on auscultation Echocardiogram pending as part of CVA workup Other workup as above. No further management at this time (5) FEN Plan: No IV fluids at this time. Will start IV fluids if patient fails swallow study Electrolytes within normal limits. We will replace as needed Currently n.p.o. - will start heart healthy diet if patient passes swallow study Lovenox at 1 mg/kg twice daily (Wilberto Nogueira MD R1) Problem List: (1) CVA (cerebral vascular accident) ICD Codes: I63.9 - Cerebral infarction, unspecified Plan: Patient awoke at 0330 on the morning of presentation with both right and left extremity weakness, slurred speech. Right-sided weakness resolved but has had persistent left-sided weakness, slurred speech, facial droop and cranial nerve deficiencies CT on admission was negative for hemorrhagic stroke Concern for acute ischemic stroke versus TIA Consulting neurology Received aspirin in the ED, has been poorly compliant with daily aspirin as an outpatient MRI brain, MRA brain, echocardiogram, ultrasound carotid arteries pending Consulting PT/OT, speech therapy We will keep n.p.o. until patient passes swallow study Placing on telemetry Scheduling aspirin daily, Lovenox 1 mg/kg twice daily Lipid panel, hemoglobin A1c pending Stroke precautions, neuro checks ordered (2) CAD (coronary artery disease) ICD Codes: I25.10 - Atherosclerotic heart disease of [place] coronary artery without angina pectoris Plan: Known history of CAD status post OH in 2004 As allergies to multiple statin regimens Has been prescribed aspirin daily but patient states he is poorly compliant with this Resuming aspirin daily, lipid panel pending No ST changes noted on admission EKG Denies chest pain on admission (3) S/P AAA repair ICD Codes: Z98.890 - Other specified postprocedural states; Z86.79 - Personal history of other diseases of the circulatory system Plan: Patient with AAA graft placed in September 2017 Workup as above. No further management at this time (4) Ectopic heartbeat ICD Codes: I49.49 - Other premature depolarization Plan: Patient with a known history of ectopic heartbeat EKG on admission confirms this, irregular heartbeat on auscultation Echocardiogram pending as part of CVA workup Other workup as above. No further management at this time (5) FEN Plan: No IV fluids at this time. Will start IV fluids if patient fails swallow study Electrolytes within normal limits. We will replace as needed Currently n.p.o. - will start heart healthy diet if patient passes swallow study Lovenox at 1 mg/kg twice daily See the residents documentation for details. I saw and evaluated the patient regarding the rhoades portions of this evaluation and agree with the residents findings and plans as written. Parts of this note were created using dragon voice recognition software program. While efforts were made to correct any mistakes made by this software, some mistakes, errors, and omissions may remain in the final note that were not caught when the note was originally created. Plan of care was discussed and agreed upon with the patient as specifically documented in the above note. An opportunity to ask questions with explanation was provided. Patient voiced understanding on all information reviewed and discussed. (Mikal Alvarez MD) Wilberto Nogueira MD R1 February 03, 2018 12:14 Mikal Alvarez MD February 06, 2018 11:20
[2018-02-03] MEDS ORDERED: GLUCAGON 1 MG/ML VIAL OTHER PRN (12:30)
[2018-02-03] MEDS ORDERED: DEXTROSE 50% IN WATER 50 ML VIAL(D50) IV PUSH PRN (12:30)
[2018-02-03] MEDS ORDERED: SODIUM CHLORIDE 0.9% FLUSH 10 ML FLUSH IV FLUSH PRN (12:30)
[2018-02-03] MEDS ORDERED: ENALAPRILAT 1.25 MG/ML VIAL IV PUSH PRN (12:30)
[2018-02-03] MEDS ORDERED: LORazepam 2 MG/ML VIAL IV PUSH PRN (13:45)
--- NOTE | 2018-02-03 14:17 | RADRPT ---
EXAM DATE/TIME: 02/03/2018 12:31 [facility] COMPARISON: No previous studies available for comparison. INDICATIONS : Transient ischemic attack. MEDICAL HISTORY : Myocardial infarction. Hypercholesterolemia. Aneurysm, abdominal. Macular degeneration. Neuropathy. T remors. Coronary artery disease. Chest pain. Ectopic beats. Sleep apnea. HTN. Melena. Osteoarthritis. Spinal stenosis. SURGICAL HISTORY : Tonsillectomy. Abdominal aortic aneurysm repair. Cardiac cath. ENCOUNTER: Initial ACUITY: 1 day PAIN SCORE: 0/10 LOCATION: Right neck PEAK SYSTOLIC VELOCITIES (cm/sec): ICA/CCA RATIO: Right: 1.1 Left: 1.2 ICA: Right: 105 Left: 115 CCA: Right: 95.7 Left: 97.3 ECA: Right: 103 Left: 119 VERTEBRAL: Right: 41.1 antegrade Left: 28.1 antegrade Elevated flow velocities and ICA/CCA ratios have been found to correlate with increased degrees of vessel stenosis, calculated as percentage of diameter relative to a normal segment of distal ICA/CCA FINDINGS: RIGHT CAROTID: Minimal plaquing in the carotid bulb. The waveforms are within normal limits. LEFT CAROTID: Minimal plaquing in the carotid bulb. The waveforms are within normal limits. VERTEBRAL ARTERIES: Antegrade flow is seen in both vertebral arteries. MISCELLANEOUS: None. CONCLUSION: 1. Minimal plaquing both carotid bulbs. 2. Somewhat high resistance waveform in the left vertebral with diminished systolic velocities. Findi ngs could represent distal occlusion or termination at PICA branch. 3. Otherwise, no sonographic or Doppler findings of a hemodynamically significant stenosis in the car otids. Abdirizak Salmeron MD on February 03, 2018 at 14:12 Board Certified Radiologist. This report was verified electronically.
--- NOTE | 2018-02-03 14:45 | MB ---
cc: Yary Beckett MD DATE: 02/03/2018 REASON FOR CONSULTATION: Stroke, left-sided weakness. HISTORY OF PRESENT ILLNESS: This is a pleasant 77-year-old man who woke up about 3:00 in the morning on 12/23/2017 with left-sided weakness. Time of onset is unknown. He has a history of an PA in 2004, AAA graft in 09/2017, heart disease, osteoarthritis, and spinal stenosis. He is status post MRI just now. He still has weakness over his left arm and leg. He denies any headache. His speech is still somewhat slurred. He does not take aspirin on a daily basis. He is fairly noncompliant. He is not sure when he took it last. PAST MEDICAL HISTORY: As stated, but also has macular degeneration and peripheral neuropathy. ALLERGIES: 1. NIACIN. 2. ATORVASTATIN. 3. FENOFIBRATE. 4. METOPROLOL. 5. SIMVASTATIN. FAMILY HISTORY: Noncontributory. SOCIAL HISTORY: He states he lives alone. Occasional alcohol. Quit smoking in 2004. PHYSICAL EXAMINATION: VITAL SIGNS: Temperature is 97.5, pulse 75, respiratory rate 24, blood pressure 175/79, sating 98% on 2 liters nasal cannula. NECK: Supple. HEART: Regular. Questionable atrial fibrillation. NEUROLOGIC: He is awake, alert. His pupils reactive. Visual valladares difficult to assess at this time. Left facial droop. He is dysarthric. Motor barros, he has a drift and a lag on the left. Left arm is 3/5, leg is 4/5. DTRs are trace. Toes are silent. Cerebellar is normal on the right. Gait is withheld. LABORATORY DATA: CBC is normal. Coag panel is unremarkable. Chemistries: Glucose 150, calcium 9.1. Hemoglobin A1c is pending. IMAGING STUDIES: Still pending. CT of the head did not show anything acute. IMPRESSION AND RECOMMENDATIONS: Left hemiparesis, likely due to right hemispheric stroke. Recommend putting him on aspirin. If he is unable to swallow the aspirin, then go ahead and give him suppository 300 mg. We will get an MRI/MRA, echo, carotid ultrasound and lipid panel. SCDs and Lovenox for DVT prevention. PT, OT, speech therapy. Rehab consult. Permissible hypertension for the next 24-48 hours and then start normalizing his blood pressure, treat systolic and diastolic 220/110 with p.r.n. medications if needed. Continue current care. Further recommendations will be made accordingly. Keep him at bedrest today and start PT tomorrow if he is stable. MD JOSE EDUARDO Aviles/CLARE , 02:11 PM , 02:44 PM
--- NOTE | 2018-02-03 15:20 | RADRPT ---
EXAM DATE/TIME: 02/03/2018 14:38 [facility] COMPARISON: MRI BRAIN W/O CONTRAST, February 03, 2018, 14:38. INDICATIONS : Stroke. Left sided weakness and facial droop. MEDICAL HISTORY : Cardiovascular disease SURGICAL HISTORY : Abdominal aortic aneurysm repair. Coronary artery stent. Tonsillectomy. ENCOUNTER: Initial ACUITY: 1 day PAIN SCORE: 4/10 LOCATION: Left cranial Please note a normal MRA of the brain does not entirely exclude the possibility of a small aneurysm, nor the possibility of distal intracranial vessel disease. TECHNIQUE: 3D time of flight MRA was performed. Source images, multiplanar STS MIP, and 3D volume MIP reconstru ctions were reviewed. FINDINGS: There is excellent visualization of the major intracranial arteries out to the second-order branch ve ssels. There is no evidence for aneurysm, vessel truncation or stenosis, and no evidence for vascula r malformation. CONCLUSION: Negative MRI of the brain. Robert Duran MD FACR on February 03, 2018 at 15:14 Board Certified Radiologist. This report was verified electronically.
--- NOTE | 2018-02-03 15:22 | RADRPT ---
EXAM DATE/TIME: 02/03/2018 14:38 [facility] COMPARISON: No previous studies available for comparison. INDICATIONS : Stroke. Left sided weakness and facial droop. MEDICAL HISTORY : Cardiovascular disease SURGICAL HISTORY : Abdominal aortic aneurysm repair. Coronary artery stent. Tonsillectomy. ENCOUNTER: Initial ACUITY: 1 day PAIN SCORE: 3/10 LOCATION: Left cranial TECHNIQUE: Multiplanar, multisequence MRI of the brain was performed without contrast. FINDINGS: Marked periventricular white matter changes with mild central and cortical atrophy. No restricted di ffusion to suggest an acute ischemic event. There are no extra-axial fluid collections. Midline structures are intact There is no parenchymal hemorrhage. CONCLUSION: Marked periventricular white matter changes and atrophy; negative for acute ischemic process. No hem orrhage Robert Duran MD FACR on February 03, 2018 at 15:17 Board Certified Radiologist. This report was verified electronically.
[2018-02-03] MEDS: INSULIN ASPART SUPPLEMENTAL SCALE SQ SCH ×2 (17:00→21:39)
[2018-02-03 17:13] LABS: HEMOGLOBIN A1C 5.1 % (4.3-6.0)
--- NOTE | 2018-02-03 18:11 | HHI.PR ---
Addendum to Inpatient Note Addendum Reason: Additional Documentation Additional Information Delayed entry from 1600: Page from nursing regarding change in mental status. Patient evaluated at the bedside alongside Dr. Alvarez; the patient states he is unable to move the left side of his body. He is unable to move his left leg or left arm. His sensation is intact in both. He continues to have left facial droop. Of note, the MRI of his brain was reported as negative. The patient did receive 1 mg of Ativan prior to going into the MRI because of claustrophobia. The presentation/case after the MRI was discussed with neurologist Dr. Beckett. Dr. Beckett noted that our description of his PE remains unchanged and no further workup or treatments are needed. PE: Awake alert and oriented 3 Neuro exam: Strength 5 out of 5 on the right side. Left facial droop. Sensation intact throughout. 1 out of 5 strength left arm. 1 out of 5 strength left leg. Assessment/plan: Continue current management as discussed in the initial note. Case discussed with Dr. Beckett and Dr. Alvarez and Kai Covington MD R3 February 03, 2018 18:11
[2018-02-03] MEDS: ENOXAPARIN SODIUM 100 MG/ML SYRINGE SQ SCH (21:39)
[2018-02-03] MEDS: SODIUM CHLORIDE 0.9% FLUSH 10 ML FLUSH IV FLUSH SCH (21:39)
[2018-02-04] VITALS: BP 122/70; PULSE 106; RESP 16; TEMP 97.6
[2018-02-04 07:27] LABS: AUTOMATED NEUTROPHIL # 6.2 TH/MM3 (1.8-7.7); BASOPHIL % 0.3 % (0.0-2.0); EOSINOPHIL # 0.1 TH/MM3 (0-0.4); EOSINOPHIL % 1.4 % (0.0-4.0); HEMATOCRIT 45.5 % (39.0-51.0); HEMOGLOBIN 15.3 GM/DL (13.0-17.0); LYMPH % 25.6 % (9.0-44.0); LYMPHOCYTE # 2.4 TH/MM3 (1.0-4.8); MEAN CELL VOLUME 87.1 FL (80.0-100.0); MEAN CORPUSCULAR HEMOGLOBIN 29.3 PG (27.0-34.0); MEAN CORPUSCULAR HGB CONC 33.7 % (32.0-36.0); MONO % 7.2 % (0.0-8.0); MONOCYTE # 0.7 TH/MM3 (0-0.9); NEUT % 65.5 % (16.0-70.0); PLATELET COUNT 163 TH/MM3 (150-450); RED BLOOD COUNT 5.22 MIL/MM3 (4.50-5.90); RED CELL DISTRIBUTION WIDTH 13.8 % (11.6-17.2); WHITE BLOOD COUNT 9.4 TH/MM3 (4.0-11.0)
[2018-02-04] MEDS: INSULIN ASPART SUPPLEMENTAL SCALE SQ SCH ×4 (07:56→21:15)
[2018-02-04] MEDS: ENOXAPARIN SODIUM 100 MG/ML SYRINGE SQ SCH (08:00)
[2018-02-04 08:05] LABS: ALBUMIN 3.2 GM/DL (3.4-5.0); ALT (GPT) 20 U/L (12-78); AST (GOT) 20 U/L (15-37); BICARBONATE 27.4 MEQ/L (21.0-32.0); BLOOD UREA NITROGEN 18 MG/DL (7-18); CALCIUM 8.4 MG/DL (8.5-10.1); CHLORIDE 106 MEQ/L (98-107); CHOLESTEROL 182 MG/DL (120-200); CREATININE 0.86 MG/DL (0.60-1.30); GLOMERULAR FILTRATION RATE 86 ML/MIN (>89); GLUCOSE,RANDOM 75 MG/DL (74-106); SODIUM (NA) 143 MEQ/L (136-145)
[2018-02-04 08:07] LABS: ALKALINE PHOSPHATASE 105 U/L (45-117); CHOLESTEROL/ HDL RATIO 5.96 RATIO; HDL CHOLESTEROL 30.5 MG/DL (40.0-60.0); LDL CHOLESTEROL 129 MG/DL (0-99); TOTAL BILIRUBIN ADULT 0.5 MG/DL (0.2-1.0); TOTAL PROTEIN 6.8 GM/DL (6.4-8.2); TRIGLYCERIDES 115 MG/DL (42-150)
--- NOTE | 2018-02-04 08:21 | EKG ---
Date Performed: 02/03/2018 Time Performed: 07:48:34 PTAGE: 77 years EKG: Sinus rhythm WITH FIRST DEGREE AV BLOCK WITH FREQUENT VENTRICULAR PREMATURE COMPLEXES ABNORMAL ECG NO PREVIOUS TRACING DOCTOR: Duke Sepulveda Interpretating Date/Time 02/04/2018 08:19:58
[2018-02-04] MEDS: SODIUM CHLORIDE 0.9% FLUSH 10 ML FLUSH IV FLUSH SCH ×2 (08:42→22:13)
[2018-02-04] MEDS: ASPIRIN 81 MG CHEW TAB PO SCH (08:42)
[2018-02-04] MEDS ORDERED: ENOXAPARIN SODIUM 120 MG/0.8 ML SYRINGE SQ SCH (11:00)
--- NOTE | 2018-02-04 11:07 | HHI.FPPN ---
Subjective Remarks No acute events overnight. Patient states that his function in the left extremities has improved some since admission. Denies chest pain, shortness of breath, headache. Patient passes swallow eval and will be started on diet today. (Wilberto Nogueira MD R1) Objective Vitals Vital Signs Date Time Temp Pulse Resp B/P (MAP) Pulse Ox O2 Delivery O2 Flow Rate FiO2 02/04/18 00:00 97.6 106 16 122/70 (87) 02/03/18 20:00 97.8 109 16 128/71 (90) 97 02/03/18 16:57 02/03/18 16:05 73 24 146/64 (91) 98 Nasal Cannula 2.00 02/03/18 13:54 97 Nasal Cannula 3.00 02/03/18 13:29 75 24 175/79 (111) 98 Nasal Cannula 2.00 02/03/18 11:15 80 21 155/91 (112) 98 Nasal Cannula 2.00 (Wilberto Nogueira MD R1) Result Diagram: 02/04/18 0426 02/04/18 0426 Objective Remarks GENERAL: This is a well-nourished, well-developed patient, in no apparent distress. Notable slurred speech SKIN: No rashes, ecchymoses or lesions. Cool and dry. HEAD: Atraumatic. Normocephalic. CARDIOVASCULAR: Irregularly irregular with no murmurs appreciated RESPIRATORY: Clear to auscultation. Breath sounds equal bilaterally. No wheezes , rales, or rhonchi. GASTROINTESTINAL: Abdomen soft, non-tender, nondistended. No hepato-splenomegaly , or palpable masses. No guarding. MUSCULOSKELETAL: Extremities without clubbing, cyanosis, or edema. No joint tenderness, effusion, or edema noted. No calf tenderness. NEUROLOGICAL: Awake and alert. Patient noted to have asymmetric smile with left facial droop -improved from prior exam. Weak shoulder shrug on the left. 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 He is able to lift the left arm/leg passively but is weak against resistance. Five out of 5 muscle strength on the right. Sensation is intact and equal in the bilateral extremities. Slurred speech mildly improved from prior exam and is answering questions appropriately. (Wilberto Nogueira MD R1) A/P Assessment and Plan 77-year-old male with history of CAD status post [place] in 2004, AAA graft placed in September 2017, ectopic heart beats who is presenting to the ED after waking from sleep with both left-sided and right-sided weakness. Right-sided weakness resolved but has had persistent left-sided weakness, left-sided facial droop, slurred speech with some cranial nerve deficiencies. CT head on admission negative for acute bleed. Will admit for stroke workup. Treatment as below Discharge Planning Will likely need inpatient rehab on discharge. (Wilberto Nogueira MD R1) Problem List: (1) CVA (cerebral vascular accident) ICD Codes: I63.9 - Cerebral infarction, unspecified Plan: Patient awoke at 0330 on the morning of presentation with both right and left extremity weakness, slurred speech. Right-sided weakness resolved but has had persistent left-sided weakness, slurred speech, facial droop and cranial nerve deficiencies Concern for acute ischemic stroke versus TIA. Differential may need to include other neurologic processes as imaging is been negative for stroke and he has persistent symptoms. May need to consider imaging spine if stroke is ruled out and symptoms persist Neurology consulted Echocardiogram pending PT/OT/ST consulted Scheduling aspirin daily, Lovenox 1 mg/kg twice daily Hemoglobin A1c normal. Lipid panel showed elevated LDL at 129 TSH normal Imaging: CT on admission was negative for hemorrhagic stroke MRI on admission with marked periventricular white matter changes and atrophy, negative for acute ischemic process or hemorrhage. Carotid artery ultrasound with high resistance waveform in the left vertebral with diminished systolic velocities which could represent distal occlusion or termination at PICA branch. No other signs of stenosis. (2) CAD (coronary artery disease) ICD Codes: I25.10 - Atherosclerotic heart disease of [place] coronary artery without angina pectoris Plan: Known history of CAD status post [place] in 2005 As allergies to multiple statin regimens Has been prescribed aspirin daily but patient states he is poorly compliant with this Resuming aspirin daily, lipid panel as above No ST changes noted on admission EKG Denies chest pain on admission (3) S/P AAA repair ICD Codes: Z98.890 - Other specified postprocedural states; Z86.79 - Personal history of other diseases of the circulatory system Plan: Patient with AAA graft placed in September 2017 Workup as above. No further management at this time (4) Ectopic heartbeat ICD Codes: I49.49 - Other premature depolarization Plan: Patient with a known history of ectopic heartbeat EKG on admission confirms this, irregular heartbeat on auscultation Echocardiogram pending as part of CVA workup Other workup as above. No further management at this time (5) FEN Plan: No IV fluids at this time as patient is tolerating p.o. Electrolytes within normal limits. We will replace as needed Heart healthy diet Lovenox at 1 mg/kg twice daily (Wilberto Nogueira MD R1) Problem List: (1) CVA (cerebral vascular accident) ICD Codes: I63.9 - Cerebral infarction, unspecified Plan: Patient awoke at 0330 on the morning of presentation with both right and left extremity weakness, slurred speech. Right-sided weakness resolved but has had persistent left-sided weakness, slurred speech, facial droop and cranial nerve deficiencies Concern for acute ischemic stroke versus TIA. Differential may need to include other neurologic processes as imaging is been negative for stroke and he has persistent symptoms. May need to consider imaging spine if stroke is ruled out and symptoms persist Neurology consulted Echocardiogram pending PT/OT/ST consulted Scheduling aspirin daily, Lovenox 1 mg/kg twice daily Hemoglobin A1c normal. Lipid panel showed elevated LDL at 129 TSH normal Imaging: CT on admission was negative for hemorrhagic stroke MRI on admission with marked periventricular white matter changes and atrophy, negative for acute ischemic process or hemorrhage. Carotid artery ultrasound with high resistance waveform in the left vertebral with diminished systolic velocities which could represent distal occlusion or termination at PICA branch. No other signs of stenosis. (2) CAD (coronary artery disease) ICD Codes: I25.10 - Atherosclerotic heart disease of [place] coronary artery without angina pectoris Plan: Known history of CAD status post [place] in 2004 As allergies to multiple statin regimens Has been prescribed aspirin daily but patient states he is poorly compliant with this Resuming aspirin daily, lipid panel as above No ST changes noted on admission EKG Denies chest pain on admission (3) S/P AAA repair ICD Codes: Z98.890 - Other specified postprocedural states; Z86.79 - Personal history of other diseases of the circulatory system Plan: Patient with AAA graft placed in September 2017 Workup as above. No further management at this time (4) Ectopic heartbeat ICD Codes: I49.49 - Other premature depolarization Plan: Patient with a known history of ectopic heartbeat EKG on admission confirms this, irregular heartbeat on auscultation Echocardiogram pending as part of CVA workup Other workup as above. No further management at this time (5) FEN Plan: No IV fluids at this time as patient is tolerating p.o. Electrolytes within normal limits. We will replace as needed Heart healthy diet Lovenox at 1 mg/kg twice daily See the residents documentation for details. I saw and evaluated the patient regarding the rhoades portions of this evaluation and agree with the residents findings and plans as written. Parts of this note were created using [employer] voice recognition software program. While efforts were made to correct any mistakes made by this software, some mistakes, errors, and omissions may remain in the final note that were not caught when the note was originally created. Plan of care was discussed and agreed upon with the patient as specifically documented in the above note. An opportunity to ask questions with explanation was provided. Patient voiced understanding on all information reviewed and discussed. (Mikal Alvarez MD) Wilberto Nogueira MD R1 February 04, 2018 11:07 Mikal Alvarez MD February 06, 2018 11:34
[2018-02-04 12:38] VITALS: BP 133/75; PULSE 76; RESP 20; TEMP 98; O2SAT 97
[2018-02-04 20:01] VITALS: O2SAT 97
[2018-02-04 20:05] VITALS: BP 156/73; PULSE 42; RESP 20; TEMP 97.6; O2SAT 96
[2018-02-04 20:18] VITALS: PULSE 68
[2018-02-04] MEDS: ENOXAPARIN SODIUM 120 MG/0.8 ML SYRINGE SQ SCH (22:13)
[2018-02-05] VITALS (10 sets, daily range): BP systolic 129–176; BP diastolic 68–104; PULSE 44–70; RESP 17–20; TEMP 97.4–98.2; O2SAT 96–99
[2018-02-05 06:08] LABS: AUTOMATED NEUTROPHIL # 5.8 TH/MM3 (1.8-7.7); BASOPHIL % 0.5 % (0.0-2.0); EOSINOPHIL # 0.1 TH/MM3 (0-0.4); EOSINOPHIL % 1.6 % (0.0-4.0); HEMATOCRIT 43.9 % (39.0-51.0); HEMOGLOBIN 15.2 GM/DL (13.0-17.0); LYMPH % 24.2 % (9.0-44.0); LYMPHOCYTE # 2.1 TH/MM3 (1.0-4.8); MEAN CELL VOLUME 85.7 FL (80.0-100.0); MEAN CORPUSCULAR HEMOGLOBIN 29.6 PG (27.0-34.0); MEAN CORPUSCULAR HGB CONC 34.6 % (32.0-36.0); MEAN PLATELET VOLUME 9.8 FL (7.0-11.0); MONO % 8.2 % (0.0-8.0); MONOCYTE # 0.7 TH/MM3 (0-0.9); NEUT % 65.5 % (16.0-70.0); PLATELET COUNT 165 TH/MM3 (150-450); RED BLOOD COUNT 5.13 MIL/MM3 (4.50-5.90); RED CELL DISTRIBUTION WIDTH 13.8 % (11.6-17.2); WHITE BLOOD COUNT 8.9 TH/MM3 (4.0-11.0)
[2018-02-05 06:30] LABS: BICARBONATE 28.7 MEQ/L (21.0-32.0); CALCIUM 8.3 MG/DL (8.5-10.1); CREATININE 0.87 MG/DL (0.60-1.30)
[2018-02-05] MEDS: INSULIN ASPART SUPPLEMENTAL SCALE SQ SCH ×4 (07:59→21:23)
[2018-02-05] MEDS: ASPIRIN 81 MG CHEW TAB PO SCH (08:55)
[2018-02-05] MEDS: SODIUM CHLORIDE 0.9% FLUSH 10 ML FLUSH IV FLUSH SCH ×2 (09:00→22:02)
--- NOTE | 2018-02-05 09:33 | HHI.FPPN ---
Objective Vitals Vital Signs Date Time Temp Pulse Resp B/P (MAP) Pulse Ox O2 Delivery O2 Flow Rate FiO2 02/05/18 07:53 97.4 44 20 160/71 (100) 99 02/05/18 04:04 52 02/05/18 04:00 98.0 60 17 148/68 (94) 98 02/05/18 00:30 57 02/05/18 00:00 98.2 64 18 165/74 (104) 96 02/04/18 20:18 68 02/04/18 20:05 97.6 42 20 156/73 (100) 96 02/04/18 20:01 97 21 02/04/18 12:38 98.0 76 20 133/75 (94) 97 02/04/18 12:06 21 I/O 02/04/18 02/04/18 02/04/18 02/05/18 02/05/18 02/05/18 07:00 15:00 23:00 07:00 15:00 23:00 Output Total 600 ml Balance -600 ml Output Urine Total 600 ml # Voids 1 Result Diagram: 02/05/18 0516 02/05/18 0516 Objective Remarks GENERAL: This is a well-nourished, well-developed patient, in no apparent distress. Notable slurred speech SKIN: No rashes, ecchymoses or lesions. Cool and dry. HEAD: Atraumatic. Normocephalic. CARDIOVASCULAR: Irregularly irregular with no murmurs appreciated RESPIRATORY: Clear to auscultation. Breath sounds equal bilaterally. No wheezes , rales, or rhonchi. GASTROINTESTINAL: Abdomen soft, non-tender, nondistended. No hepato-splenomegaly , or palpable masses. No guarding. MUSCULOSKELETAL: Extremities without clubbing, cyanosis, or edema. No joint tenderness, effusion, or edema noted. No calf tenderness. NEUROLOGICAL: Awake and alert. Patient noted to have asymmetric smile with left facial droop -improved from prior exam. Weak shoulder shrug on the left. 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 He is able to lift the left arm/leg passively but is weak against resistance. Five out of 5 muscle strength on the right. Sensation is intact and equal in the bilateral extremities. Slurred speech mildly improved from prior exam and is answering questions appropriately. A/P Assessment and Plan 77-year-old male with history of CAD status post [place] in 2004, AAA graft placed in September 2017, ectopic heart beats who is presenting to the ED after waking from sleep with both left-sided and right-sided weakness. Right-sided weakness resolved but has had persistent left-sided weakness, left-sided facial droop, slurred speech with some cranial nerve deficiencies. CT head on admission negative for acute bleed. Will admit for stroke workup. Treatment as below Discharge Planning Will need inpatient rehab on discharge. Problem List: (1) CVA (cerebral vascular accident) ICD Codes: I63.9 - Cerebral infarction, unspecified Plan: Patient awoke at 0330 on the morning of presentation with both right and left extremity weakness, slurred speech. Right-sided weakness resolved but has had persistent left-sided weakness, slurred speech, facial droop and cranial nerve deficiencies Concern for acute ischemic stroke versus TIA. Differential may need to include other neurologic processes as imaging is been negative for stroke and he has persistent symptoms. May need to consider imaging spine if stroke is ruled out and symptoms persist Neurology consulted Echocardiogram pending PT/OT/ST - will need inpatient rehab Scheduling aspirin daily, Lovenox 1 mg/kg twice daily Hemoglobin A1c normal. Lipid panel showed elevated LDL at 129 TSH normal Imaging: CT on admission was negative for hemorrhagic stroke MRI on admission with marked periventricular white matter changes and atrophy, negative for acute ischemic process or hemorrhage. Carotid artery ultrasound with high resistance waveform in the left vertebral with diminished systolic velocities which could represent distal occlusion or termination at PICA branch. No other signs of stenosis. (2) CAD (coronary artery disease) ICD Codes: I25.10 - Atherosclerotic heart disease of [place] coronary artery without angina pectoris Plan: Known history of CAD status post [place] in 2005 As allergies to multiple statin regimens Has been prescribed aspirin daily but patient states he is poorly compliant with this Resuming aspirin daily, lipid panel as above No ST changes noted on admission EKG Denies chest pain on admission (3) S/P AAA repair ICD Codes: Z98.890 - Other specified postprocedural states; Z86.79 - Personal history of other diseases of the circulatory system Plan: Patient with AAA graft placed in September 2017 Workup as above. No further management at this time (4) Ectopic heartbeat ICD Codes: I49.49 - Other premature depolarization Plan: Patient with a known history of ectopic heartbeat EKG on admission confirms this, irregular heartbeat on auscultation Echocardiogram pending as part of CVA workup Other workup as above. No further management at this time (5) FEN Plan: No IV fluids at this time as patient is tolerating p.o. Electrolytes within normal limits. We will replace as needed Heart healthy diet Lovenox at 1 mg/kg twice daily Wilberto Nogueira MD R1 February 05, 2018 09:33
[2018-02-05] MEDS: ENOXAPARIN SODIUM 120 MG/0.8 ML SYRINGE SQ SCH ×2 (11:00→22:02)
--- NOTE | 2018-02-05 11:25 | HHI.PR ---
Subjective Remarks left side weakness arm>leg mild facial droop as well. Objective Vital Signs Date Time Temp Pulse Resp B/P (MAP) Pulse Ox O2 Delivery O2 Flow Rate FiO2 02/05/18 07:53 97.4 44 20 160/71 (100) 99 02/05/18 04:04 52 02/05/18 04:00 98.0 60 17 148/68 (94) 98 02/05/18 00:30 57 02/05/18 00:00 98.2 64 18 165/74 (104) 96 02/04/18 20:18 68 02/04/18 20:05 97.6 42 20 156/73 (100) 96 02/04/18 20:01 97 21 02/04/18 12:38 98.0 76 20 133/75 (94) 97 02/04/18 12:06 21 I/O 02/04/18 02/04/18 02/04/18 02/05/18 02/05/18 02/05/18 07:00 15:00 23:00 07:00 15:00 23:00 Output Total 600 ml Balance -600 ml Output Urine Total 600 ml # Voids 1 Result Diagram: 02/05/18 0516 02/05/18 0516 Objective Remarks awake alert left facial lue 3+/5 lle4/5 sensory intact toes neutral gait per PT Assessment and Plan Assessment and Plan left hemiparesis still believe a stroke no neck issues or pain -repeat brain mri asa,statin,pt-ot-rehab sq heparin dvt prevention. Yary Beckett MD February 05, 2018 11:25
[2018-02-05] MEDS ORDERED: LORazepam 2 MG/ML VIAL IV PUSH PRN (13:45)
--- NOTE | 2018-02-05 13:55 | HHI.FPPN ---
Subjective Remarks No acute events overnight. Patient continues to state that his left-sided weakness waxes and wanes. No significant improvement prior to yesterday. Continues to have a left-sided facial droop and slurred speech. Patient is aware that we will likely need rehab. Denies chest pain, shortness of breath, nausea vomiting or headache. (Wilberto Nogueira MD R1) Objective Vitals Vital Signs Date Time Temp Pulse Resp B/P (MAP) Pulse Ox O2 Delivery O2 Flow Rate FiO2 02/05/18 12:16 97.6 70 20 176/84 (114) 97 02/05/18 07:53 97.4 44 20 160/71 (100) 99 02/05/18 04:04 52 02/05/18 04:00 98.0 60 17 148/68 (94) 98 02/05/18 00:30 57 02/05/18 00:00 98.2 64 18 165/74 (104) 96 02/04/18 20:18 68 02/04/18 20:05 97.6 42 20 156/73 (100) 96 02/04/18 20:01 97 21 I/O 02/04/18 02/04/18 02/04/18 02/05/18 02/05/18 02/05/18 07:00 15:00 23:00 07:00 15:00 23:00 Output Total 600 ml Balance -600 ml Output Urine Total 600 ml # Voids 1 (Wilberto Nogueira MD R1) Result Diagram: 02/05/18 0516 02/05/18 0516 Objective Remarks GENERAL: This is a well-nourished, well-developed patient, in no apparent distress. Notable slurred speech SKIN: No rashes, ecchymoses or lesions. Cool and dry. HEAD: Atraumatic. Normocephalic. CARDIOVASCULAR: Irregularly irregular with no murmurs appreciated RESPIRATORY: Clear to auscultation. Breath sounds equal bilaterally. No wheezes , rales, or rhonchi. GASTROINTESTINAL: Abdomen soft, non-tender, nondistended. No hepato-splenomegaly , or palpable masses. No guarding. MUSCULOSKELETAL: Extremities without clubbing, cyanosis, or edema. No joint tenderness, effusion, or edema noted. No calf tenderness. NEUROLOGICAL: Awake and alert. Patient noted to have asymmetric smile with left facial droop -stable from prior exam. 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 He is able to lift the left arm/leg passively but is weak against resistance. Five out of 5 muscle strength on the right. Sensation is intact and equal in the bilateral extremities. Slurred speech stable from prior exam and is answering questions appropriately. (Wilberto Nogueira MD R1) A/P Assessment and Plan 77-year-old male with history of CAD status post [place] in 2004, AAA graft placed in September 2017, ectopic heart beats who is presenting to the ED after waking from sleep with both left-sided and right-sided weakness. Right-sided weakness resolved but has had persistent left-sided weakness, left-sided facial droop, slurred speech with some cranial nerve deficiencies. CT head on admission negative for acute bleed. Will admit for stroke workup. Treatment as below Discharge Planning Will need inpatient rehab on discharge. -[facility] accepted (Wilberto Nogueira MD R1) Problem List: (1) CVA (cerebral vascular accident) ICD Codes: I63.9 - Cerebral infarction, unspecified Plan: Patient awoke at 0330 on the morning of presentation with both right and left extremity weakness, slurred speech. Right-sided weakness resolved but has had persistent left-sided weakness, slurred speech, facial droop and cranial nerve deficiencies Concern for acute ischemic stroke versus TIA. Differential may need to include other neurologic processes as imaging is been negative for stroke and he has persistent symptoms. Neurology consulted, repeating MRI brain today Echocardiogram pending PT/OT/ST - will need inpatient rehab and [facility] reportedly accepted Scheduling aspirin daily, Lovenox 1 mg/kg twice daily Hemoglobin A1c normal. Lipid panel showed elevated LDL at 129 TSH normal Imaging: CT on admission was negative for hemorrhagic stroke MRI on admission with marked periventricular white matter changes and atrophy, negative for acute ischemic process or hemorrhage. Carotid artery ultrasound with high resistance waveform in the left vertebral with diminished systolic velocities which could represent distal occlusion or termination at PICA branch. No other signs of stenosis. (2) CAD (coronary artery disease) ICD Codes: I25.10 - Atherosclerotic heart disease of [place] coronary artery without angina pectoris Plan: Known history of CAD status post [place] in 2004 As allergies to multiple statin regimens Has been prescribed aspirin daily but patient states he is poorly compliant with this Resuming aspirin daily, lipid panel as above No ST changes noted on admission EKG Denies chest pain on admission (3) S/P AAA repair ICD Codes: Z98.890 - Other specified postprocedural states; Z86.79 - Personal history of other diseases of the circulatory system Plan: Patient with AAA graft placed in September 2017 Workup as above. No further management at this time (4) Ectopic heartbeat ICD Codes: I49.49 - Other premature depolarization Plan: Patient with a known history of ectopic heartbeat EKG on admission confirms this, irregular heartbeat on auscultation Echocardiogram pending as part of CVA workup Other workup as above. No further management at this time (5) FEN Plan: No IV fluids at this time as patient is tolerating p.o. Electrolytes within normal limits. We will replace as needed Heart healthy diet Lovenox at 1 mg/kg twice daily (Wilberto Nogueira MD R1) Problem List: (1) CVA (cerebral vascular accident) ICD Codes: I63.9 - Cerebral infarction, unspecified Plan: Patient awoke at 0330 on the morning of presentation with both right and left extremity weakness, slurred speech. Right-sided weakness resolved but has had persistent left-sided weakness, slurred speech, facial droop and cranial nerve deficiencies Concern for acute ischemic stroke versus TIA. Differential may need to include other neurologic processes as imaging is been negative for stroke and he has persistent symptoms. Neurology consulted, repeating MRI brain today Echocardiogram pending PT/OT/ST - will need inpatient rehab and [facility] reportedly accepted Scheduling aspirin daily, Lovenox 1 mg/kg twice daily Hemoglobin A1c normal. Lipid panel showed elevated LDL at 129 TSH normal Imaging: CT on admission was negative for hemorrhagic stroke MRI on admission with marked periventricular white matter changes and atrophy, negative for acute ischemic process or hemorrhage. Carotid artery ultrasound with high resistance waveform in the left vertebral with diminished systolic velocities which could represent distal occlusion or termination at PICA branch. No other signs of stenosis. (2) CAD (coronary artery disease) ICD Codes: I25.10 - Atherosclerotic heart disease of [place] coronary artery without angina pectoris Plan: Known history of CAD status post [place] in 2004 As allergies to multiple statin regimens Has been prescribed aspirin daily but patient states he is poorly compliant with this Resuming aspirin daily, lipid panel as above No ST changes noted on admission EKG Denies chest pain on admission (3) S/P AAA repair ICD Codes: Z98.890 - Other specified postprocedural states; Z86.79 - Personal history of other diseases of the circulatory system Plan: Patient with AAA graft placed in September 2017 Workup as above. No further management at this time (4) Ectopic heartbeat ICD Codes: I49.49 - Other premature depolarization Plan: Patient with a known history of ectopic heartbeat EKG on admission confirms this, irregular heartbeat on auscultation Echocardiogram pending as part of CVA workup Other workup as above. No further management at this time (5) FEN Plan: No IV fluids at this time as patient is tolerating p.o. Electrolytes within normal limits. We will replace as needed Heart healthy diet Lovenox at 1 mg/kg twice daily See the residents documentation for details. I saw and evaluated the patient regarding the rhoades portions of this evaluation and agree with the residents findings and plans as written. Parts of this note were created using [employer] voice recognition software program. While efforts were made to correct any mistakes made by this software, some mistakes, errors, and omissions may remain in the final note that were not caught when the note was originally created. Plan of care was discussed and agreed upon with the patient as specifically documented in the above note. An opportunity to ask questions with explanation was provided. Patient voiced understanding on all information reviewed and discussed. (Mikal Alvarez MD) Wilberto Nogueira MD R1 February 05, 2018 13:55 Mikal Alvarez MD February 06, 2018 11:54
--- NOTE | 2018-02-05 14:08 | RADRPT ---
EXAM DATE/TIME: 02/05/2018 13:42 [facility] COMPARISON: MRI BRAIN W/O CONTRAST, February 03, 2018, 14:38. INDICATIONS : CVA. Left side weakness. MEDICAL HISTORY : Cardiovascular disease SURGICAL HISTORY : Coronary artery stent. Abdominal aortic aneurysm repair. Tonsillectomy. ENCOUNTER: Initial ACUITY: 3 day PAIN SCORE: 0/10 LOCATION: cranial TECHNIQUE: Multiplanar, multisequence MRI of the brain was performed without contrast. FINDINGS: Again seen is the marked periventricular white matter changes extending into the brainstem. There is focal restricted diffusion involving the right side of the brainstem just below the level o f the brachium pontis. Findings are much more apparent on today's study. There is no significant mass effect. The fourth and was midline. There is no associated parenchymal hemorrhage Ventricular size appears appropriate There no extra-axial fluid collections appreciated. Orbits and paranasal sinuses are unremarkable. CONCLUSION: Focal restricted diffusion right of the brainstem as described above much more apparent on today's st udy suggesting evolving process. There is no hemorrhage. Robert Duran MD FACR on February 05, 2018 at 14:00 Board Certified Radiologist. This report was verified electronically.
[2018-02-06] VITALS (7 sets, daily range): BP systolic 132–169; BP diastolic 63–87; PULSE 35–73; RESP 19–20; TEMP 97.2–97.5; O2SAT 94–98
[2018-02-06 07:53] LABS: BASOPHIL % 0.5 % (0.0-2.0); EOSINOPHIL # 0.1 TH/MM3 (0-0.4); EOSINOPHIL % 1.6 % (0.0-4.0); HEMATOCRIT 46.6 % (39.0-51.0); HEMOGLOBIN 15.7 GM/DL (13.0-17.0); LYMPH % 24.9 % (9.0-44.0); LYMPHOCYTE # 2.3 TH/MM3 (1.0-4.8); MEAN CELL VOLUME 87.1 FL (80.0-100.0); MEAN CORPUSCULAR HEMOGLOBIN 29.4 PG (27.0-34.0); MEAN CORPUSCULAR HGB CONC 33.7 % (32.0-36.0); MEAN PLATELET VOLUME 10.1 FL (7.0-11.0); MONO % 8.7 % (0.0-8.0); MONOCYTE # 0.8 TH/MM3 (0-0.9); NEUT % 64.3 % (16.0-70.0); PLATELET COUNT 160 TH/MM3 (150-450); RED BLOOD COUNT 5.35 MIL/MM3 (4.50-5.90); RED CELL DISTRIBUTION WIDTH 14.3 % (11.6-17.2); WHITE BLOOD COUNT 9.3 TH/MM3 (4.0-11.0)
[2018-02-06] MEDS: INSULIN ASPART SUPPLEMENTAL SCALE SQ SCH (08:00)
[2018-02-06] MEDS: ASPIRIN 81 MG CHEW TAB PO SCH (08:11)
[2018-02-06] MEDS: SODIUM CHLORIDE 0.9% FLUSH 10 ML FLUSH IV FLUSH SCH (08:11)
[2018-02-06 08:21] LABS: BICARBONATE 30.6 MEQ/L (21.0-32.0); CALCIUM 8.7 MG/DL (8.5-10.1); CREATININE 1.02 MG/DL (0.60-1.30)
[2018-02-06] MEDS: ENOXAPARIN SODIUM 120 MG/0.8 ML SYRINGE SQ SCH (09:50)
[2018-02-06] MEDS ORDERED: LISINOPRIL 10 MG TAB PO SCH (10:00)
[2018-02-06] MEDS ORDERED: LISINOPRIL 5 MG TAB PO SCH (10:00)
[2018-02-06] MEDS ORDERED: PRAVASTATIN SOD 10 MG TAB PO SCH (10:00)
--- NOTE | 2018-02-06 10:57 | HHI.FPPN ---
Subjective Remarks Patient seen and examined this morning, son at bedside. Patient continues to have left-side weakness that waxes and wanes. This morning, he states that he is unable to lift his left arm. Also still has left facial droop and some slurred speech. He understands the need for rehab and is cooperative. No other issues. (Desiree Ahmadi MD R2) Objective Vitals Vital Signs Date Time Temp Pulse Resp B/P (MAP) Pulse Ox O2 Delivery O2 Flow Rate FiO2 02/06/18 10:11 94 02/06/18 08:00 97.2 35 20 169/82 (111) 94 02/06/18 08:00 71 02/06/18 04:27 97.5 69 20 132/87 (102) 97 02/06/18 04:00 72 02/06/18 00:05 97.5 67 20 152/85 (107) 98 02/06/18 00:05 66 02/05/18 21:20 97 21 02/05/18 20:04 97.8 64 20 129/76 (93) 97 02/05/18 20:00 68 02/05/18 16:13 161/104 (123) 02/05/18 12:16 97.6 70 20 176/84 (114) 97 I/O 02/05/18 02/05/18 02/05/18 02/06/18 02/06/18 02/06/18 06:59 14:59 22:59 06:59 14:59 22:59 Output Total 600 ml 550 ml Balance -600 ml -550 ml Output Urine Total 600 ml 550 ml # Voids 1 (Desiree Ahmadi MD R2) Result Diagram: 02/06/18 0607 02/06/18 0607 Objective Remarks GENERAL: This is a well-nourished, well-developed patient, in no apparent distress. Notable slurred speech SKIN: No rashes, ecchymoses or lesions. Cool and dry. HEAD: Atraumatic. Normocephalic. CARDIOVASCULAR: Irregularly irregular with no murmurs appreciated RESPIRATORY: Clear to auscultation. Breath sounds equal bilaterally. No wheezes , rales, or rhonchi. GASTROINTESTINAL: Abdomen soft, non-tender, nondistended. No hepato-splenomegaly , or palpable masses. No guarding. MUSCULOSKELETAL: Extremities without clubbing, cyanosis, or edema. No joint tenderness, effusion, or edema noted. No calf tenderness. NEUROLOGICAL: Awake and alert. Patient noted to have asymmetric smile with left facial droop -stable from prior exam. 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 He is able to lift the left arm/leg passively but is weak against resistance. Five out of 5 muscle strength on the right. Sensation is intact and equal in the bilateral extremities. Slurred speech stable from prior exam and is answering questions appropriately. (Desiree Ahmadi MD R2) A/P Assessment and Plan 77-year-old male with history of CAD status post ND in 2004, AAA graft placed in September 2017, ectopic heart beats who is presenting to the ED after waking from sleep with both left-sided and right-sided weakness. Right-sided weakness resolved but has had persistent left-sided weakness, left-sided facial droop, slurred speech with some cranial nerve deficiencies. CT head on admission negative for acute bleed. Will admit for stroke workup. Treatment as below Discharge Planning Will need inpatient rehab on discharge. -[facility] accepted (Desiree Ahmadi MD R2) Problem List: (1) CVA (cerebral vascular accident) ICD Codes: I63.9 - Cerebral infarction, unspecified Plan: Patient awoke at 0330 on the morning of presentation with both right and left extremity weakness, slurred speech. Right-sided weakness resolved but has had persistent left-sided weakness, slurred speech, facial droop and cranial nerve deficiencies Concern for acute ischemic stroke versus TIA. Differential may need to include other neurologic processes as imaging is been negative for stroke and he has persistent symptoms. Neurology consulted Repeat MRI on 02/05 shows focal restricted diffusion involving the right side of the brainstem just below the level of the brachium; evolving process * Spoke with Dr. Beckett who confirmed that the patient had a pontine stroke and would benefit from rehab. Okay to discharge to rehab per neurology. Echocardiogram pending PT/OT/ST - will need inpatient rehab and [facility] accepted the patient Scheduling aspirin daily, Lovenox 1 mg/kg twice daily Labs: Hemoglobin A1c normal. Lipid panel showed elevated LDL at 129 TSH normal Imaging: CT on admission was negative for hemorrhagic stroke MRI on admission with marked periventricular white matter changes and atrophy, negative for acute ischemic process or hemorrhage. Carotid artery ultrasound with high resistance waveform in the left vertebral with diminished systolic velocities which could represent distal occlusion or termination at PICA branch. No other signs of stenosis. (2) CAD (coronary artery disease) ICD Codes: I25.10 - Atherosclerotic heart disease of [place] coronary artery without angina pectoris Plan: Known history of CAD status post ND in 2004 As allergies to multiple statin regimens Has been prescribed aspirin daily but patient states he is poorly compliant with this Resuming aspirin daily, lipid panel as above No ST changes noted on admission EKG Denies chest pain on admission (3) S/P AAA repair ICD Codes: Z98.890 - Other specified postprocedural states; Z86.79 - Personal history of other diseases of the circulatory system Plan: Patient with AAA graft placed in September 2017 Workup as above. No further management at this time (4) Ectopic heartbeat ICD Codes: I49.49 - Other premature depolarization Plan: Patient with a known history of ectopic heartbeat EKG on admission confirms this, irregular heartbeat on auscultation Echocardiogram interpretation pending as part of CVA workup Other workup as above. No further management at this time (5) FEN Plan: No IV fluids at this time as patient is tolerating p.o. Electrolytes within normal limits. Heart healthy diet Lovenox at 1 mg/kg twice daily (Eko,Desiree MARCUS R2) Problem List: (1) CVA (cerebral vascular accident) ICD Codes: I63.9 - Cerebral infarction, unspecified Plan: Patient awoke at 0330 on the morning of presentation with both right and left extremity weakness, slurred speech. Right-sided weakness resolved but has had persistent left-sided weakness, slurred speech, facial droop and cranial nerve deficiencies Concern for acute ischemic stroke versus TIA. Differential may need to include other neurologic processes as imaging is been negative for stroke and he has persistent symptoms. Neurology consulted Repeat MRI on 02/05 shows focal restricted diffusion involving the right side of the brainstem just below the level of the brachium; evolving process * Spoke with Dr. Beckett who confirmed that the patient had a pontine stroke and would benefit from rehab. Okay to discharge to rehab per neurology. Echocardiogram pending PT/OT/ST - will need inpatient rehab and [facility] accepted the patient Scheduling aspirin daily, Lovenox 1 mg/kg twice daily Labs: Hemoglobin A1c normal. Lipid panel showed elevated LDL at 129 TSH normal Imaging: CT on admission was negative for hemorrhagic stroke MRI on admission with marked periventricular white matter changes and atrophy, negative for acute ischemic process or hemorrhage. Carotid artery ultrasound with high resistance waveform in the left vertebral with diminished systolic velocities which could represent distal occlusion or termination at PICA branch. No other signs of stenosis. (2) CAD (coronary artery disease) ICD Codes: I25.10 - Atherosclerotic heart disease of [place] coronary artery without angina pectoris Plan: Known history of CAD status post ND in 2004 As allergies to multiple statin regimens Has been prescribed aspirin daily but patient states he is poorly compliant with this Resuming aspirin daily, lipid panel as above No ST changes noted on admission EKG Denies chest pain on admission (3) S/P AAA repair ICD Codes: Z98.890 - Other specified postprocedural states; Z86.79 - Personal history of other diseases of the circulatory system Plan: Patient with AAA graft placed in September 2017 Workup as above. No further management at this time (4) Ectopic heartbeat ICD Codes: I49.49 - Other premature depolarization Plan: Patient with a known history of ectopic heartbeat EKG on admission confirms this, irregular heartbeat on auscultation Echocardiogram interpretation pending as part of CVA workup Other workup as above. No further management at this time (5) FEN Plan: No IV fluids at this time as patient is tolerating p.o. Electrolytes within normal limits. Heart healthy diet Lovenox at 1 mg/kg twice daily I have reviewed the patients past medical/surgical and social histories and updated as appropriate. Parts of this note were created using [employer] voice recognition software program. While efforts were made to correct any mistakes made by this software, some mistakes, errors, and omissions may remain in the final note that were not caught when the note was originally created. Plan of care was discussed and agreed upon with the patient as specifically documented in the above note. An opportunity to ask questions with explanation was provided. Medications were reviewed and discussed as appropriate including side effects and risks vs. benefit. Pt. was instructed should any symptoms worsen he should call for an [facility] appointment or report to the emergency department for further evaluation. Patient voiced understanding on all information reviewed and discussed. (Mikal Alvarez MD) Desiree Ahmadi MD February 06, 2018 10:57 Mikal Alvarez MD February 06, 2018 14:29
--- NOTE | 2018-02-06 12:11 | HHI.DCPOC ---
Discharge Care Plan Diagnosis: (1) CVA (cerebral vascular accident) (2) Acute ischemic stroke (3) CAD (coronary artery disease) (4) Ectopic heartbeat Goals to Promote Your Health * To prevent worsening of your condition and complications * To maintain your health at the optimal level Directions to Meet Your Goals Take your medications as prescribed Follow your dietary instruction Follow activity as directed Keep your appointments as scheduled Take your immunizations and boosters as scheduled If your symptoms worsen call your PCP, if no PCP go to Urgent Care Center or Emergency Room Smoking is Dangerous to Your Health. Avoid second hand smoke Call the 24-hour hour crisis hotline for domestic abuse at Desiree Ahmadi MD R2 February 06, 2018 12:11 pm
--- NOTE | 2018-02-06 13:53 | HHI.DS ---
Bev Lynn MD R1 02/06/18 1353: Discharge Summary Admission Date February 03, 2018 at 13:01 Discharge Date: February 06, 2018 Admitting Diagnosis (1) CVA (cerebral vascular accident) Diagnosis: Principal Plan: Patient awoke at 0330 on the morning of presentation with both right and left extremity weakness, slurred speech. Right-sided weakness resolved but has had persistent left-sided weakness, slurred speech, facial droop and cranial nerve deficiencies Concern for acute ischemic stroke versus TIA. Differential may need to include other neurologic processes as imaging is been negative for stroke and he has persistent symptoms. Neurology consulted, repeating MRI brain today Echocardiogram pending PT/OT/ST - will need inpatient rehab and [facility] Scheduling aspirin daily, Lovenox 1 mg/kg twice daily Hemoglobin A1c normal. Lipid panel showed elevated LDL at 129 TSH normal Imaging: CT on admission was negative for hemorrhagic stroke MRI on admission with marked periventricular white matter changes and atrophy, negative for acute ischemic process or hemorrhage. Carotid artery ultrasound with high resistance waveform in the left vertebral with diminished systolic velocities which could represent distal occlusion or termination at PICA branch. No other signs of stenosis. ICD Codes: I63.9 - Cerebral infarction, unspecified Status: Acute (2) CAD (coronary artery disease) Diagnosis: Secondary Plan: Known history of CAD status post SC in 2004 As allergies to multiple statin regimens Has been prescribed aspirin daily but patient states he is poorly compliant with this Resuming aspirin daily, lipid panel as above No ST changes noted on admission EKG Denies chest pain on admission ICD Codes: I25.10 - Atherosclerotic heart disease of [place] coronary artery without angina pectoris (3) S/P AAA repair Plan: Patient with AAA graft placed in September 2017 Workup as above. No further management at this time ICD Codes: Z98.890 - Other specified postprocedural states; Z86.79 - Personal history of other diseases of the circulatory system Status: Chronic (4) Ectopic heartbeat Diagnosis: Secondary Plan: Patient with a known history of ectopic heartbeat EKG on admission confirms this, irregular heartbeat on auscultation Echocardiogram pending as part of CVA workup Other workup as above. No further management at this time ICD Codes: I49.49 - Other premature depolarization Status: Chronic (5) FEN Diagnosis: Secondary Plan: No IV fluids at this time as patient is tolerating p.o. Electrolytes within normal limits. We will replace as needed Heart healthy diet Lovenox at 1 mg/kg twice daily See the residents documentation for details. I saw and evaluated the patient regarding the rhoades portions of this evaluation and agree with the residents findings and plans as written. Parts of this note were created using [employer] voice recognition software program. While efforts were made to correct any mistakes made by this software, some mistakes, errors, and omissions may remain in the final note that were not caught when the note was originally created. Plan of care was discussed and agreed upon with the patient as specifically documented in the above note. An opportunity to ask questions with explanation was provided. Patient voiced understanding on all information reviewed and discussed. Brief History 77 yo M with PMH of CAD w/ SC in 2004, AAA graft in September of 2017, osteoarthritis, spinal stenosis presenting to ED after he woke up at 3:30 AM and reported that he could not move his left arm or his left leg. He was unable to walk at that time. He states his R side was weak as well, but that gradually improved over the next several hours. L side has continued to be weak. Believes his R side is back at baseline. He reports that he had some slurring of speech. He denies headache or head injury. He does endorse double vision - improved with closing his R eye. No chest pain, SOB. No prior history of stroke. Has had some dizziness since his AAA repair in September. He is supposed to be taking a baby aspirin daily but says he is very noncompliant and does not like to take it. He last took it 4 days ago. CBC/BMP: 02/06/18 0607 02/06/18 0607 Significant Findings Laboratory Tests Test 02/04/18 04:26 02/05/18 05:16 02/06/18 06:07 Albumin 3.2 GM/DL (3.4-5.0) Calcium Level 8.4 MG/DL (8.5-10.1) 8.3 MG/DL (8.5-10.1) Estimat Glomerular Filtration Rate 86 ML/MIN (>89) 85 ML/MIN (>89) 71 ML/MIN (>89) LDL Cholesterol 129 MG/DL (0-99) HDL Cholesterol 30.5 MG/DL (40.0-60.0) Monocytes (%) (Auto) 8.2 % (0.0-8.0) 8.7 % (0.0-8.0) Imaging Last Impressions Brain MRI 02/05/18 Signed Impressions: Service Date/Time: Monday, February 05, 2018 13:42 - CONCLUSION: Focal restricted diffusion right of the brainstem as described above much more apparent on today's study suggesting evolving process. There is no hemorrhage. Robert Duran MD FACR Head CT 02/03/18800 Signed Impressions: Service Date/Time: Saturday, February 03, 2018 08:49 - CONCLUSION: Normal examination for a patient of this age. Larry Rodriguez MD Head Magnetic Resonance Angiography 02/03/18 Signed Impressions: Service Date/Time: Saturday, February 03, 2018 14:38 - CONCLUSION: Negative MRI of the brain. Robert Duran MD FACR Carotid Artery Ultrasound 02/03/18 Signed Impressions: Service Date/Time: Saturday, February 03, 2018 12:31 - CONCLUSION: 1. Minimal plaquing both carotid bulbs. 2. Somewhat high resistance waveform in the left vertebral with diminished systolic velocities. Findings could represent distal occlusion or termination at PICA branch. 3. Otherwise, no sonographic or Doppler findings of a hemodynamically significant stenosis in the carotids. Abdirizak Salmeron MD PE at Discharge GENERAL: This is a well-nourished, well-developed patient, in no apparent distress. Notable slurred speech SKIN: No rashes, ecchymoses or lesions. Cool and dry. HEAD: Atraumatic. Normocephalic. CARDIOVASCULAR: Irregularly irregular with no murmurs appreciated RESPIRATORY: Clear to auscultation. Breath sounds equal bilaterally. No wheezes , rales, or rhonchi. GASTROINTESTINAL: Abdomen soft, non-tender, nondistended. No hepato-splenomegaly , or palpable masses. No guarding. MUSCULOSKELETAL: Extremities without clubbing, cyanosis, or edema. No joint tenderness, effusion, or edema noted. No calf tenderness. NEUROLOGICAL: Awake and alert. Patient noted to have asymmetric smile with left facial droop -stable from prior exam. 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 He is able to lift the left arm/leg passively but is weak against resistance. Five out of 5 muscle strength on the right. Sensation is intact and equal in the bilateral extremities. Slurred speech stable from prior exam and is answering questions appropriately. Hospital Course 77-year-old male with history of CAD status post SC in 2004, AAA graft in September 2007, ectopic heartbeats, admitted to the hospital on February 03 for left- sided weakness, left-sided facial droop, slurred speech. CT negative for hemorrhagic stroke. Initial MRI related periventricular white matter changes and atrophy, negative for acute ischemic process or hemorrhage. However, repeat MRI on 02/05 shows focal restricted diffusion involving the right side of the brainstem just below the brachium. Neurology consulted. Dr. Beckett confirm that the patient had a pontine stroke and would benefit from rehab. Carotid ultrasound showed high resistance waveform the left vertebral with diminished systolic velocities which could represent a distal occlusion or termination at PICA branch. He was negative for ST changes. Echocardiogram ordered for CVA workup and results pending. Primary team will continue to follow up with the results and notify patient. Patient is currently on aspirin, Lovenox, Vasotec as needed. Patient determined stable and discharged to inpatient rehab on 02/06. Pt Condition on Discharge: Stable Discharge Disposition: Rehab Inpatient Discharge Instructions DIET: Follow Instructions for: Heart Healthy Diet Activities you can perform: Weight Bearing as [place] Follow up Referrals: PCP Follow-up - 2 Weeks Continued Medications: Amlodipine (Amlodipine) 5 Mg Tab 5 MG PO DAILY for Blood Pressure Management, #30 TAB 0 Refills B-Complex Vitamins (B Complex) 1 Cap 1 CAP PO DAILY for Nutritional Supplement, #30 CAP 0 Refills Iodine (Kelp) 150 Mcg Tablet 1 TAB PO DAILY Multiple Vitamins W/ Minerals (Preservision Areds) 1 Tab 1 TAB PO DAILY for Nutritional Supplement, TAB 0 Refills [place]-3 Fatty Acids (Fish Oil) 60 Mg-90 Mg-500 Mg Cap 1 CAP PO DAILY Vitamin A Palmitate (Vitamin A) 10,000 Unit Capsule 1 CAP PO DAILY Vitamin E Mixed (Vitamin E) 400 Unit Tablet 800 UNIT PO DAILY Discontinued Medications: Acetaminophen (Mapap) 325 Mg Tab 325 MG PO Q4-6H PRN for PAIN SCALE 1 TO 10, TAB 0 Refills Cyclobenzaprine (Flexeril) 10 Mg Tab 10 MG PO TID PRN for MUSCLE SPASM, #90 TAB 0 Refills Hydrocodone-Acetaminophen (Hydrocodone-Acetaminophen) 7.5 Mg-325 Mg Tab 1 TAB PO Q4H PRN for PAIN, TAB 0 Refills Sildenafil (Viagra) 100 Mg Tab 100 MG PO DAILY PRN for ERECTILE DYSFUNCTION, TAB 0 Refills Mikal Alvarez MD 02/08/18 1242: Discharge Summary CBC/BMP: 02/06/18 0607 02/06/18 0607 Discharge Instructions Follow up Referrals: PCP Follow-up - 2 Weeks Continued Medications: Amlodipine (Amlodipine) 5 Mg Tab 5 MG PO DAILY for Blood Pressure Management, #30 TAB 0 Refills B-Complex Vitamins (B Complex) 1 Cap 1 CAP PO DAILY for Nutritional Supplement, #30 CAP 0 Refills Iodine (Kelp) 150 Mcg Tablet 1 TAB PO DAILY Multiple Vitamins W/ Minerals (Preservision Areds) 1 Tab 1 TAB PO DAILY for Nutritional Supplement, TAB 0 Refills [place]-3 Fatty Acids (Fish Oil) 60 Mg-90 Mg-500 Mg Cap 1 CAP PO DAILY Vitamin A Palmitate (Vitamin A) 10,000 Unit Capsule 1 CAP PO DAILY Vitamin E Mixed (Vitamin E) 400 Unit Tablet 800 UNIT PO DAILY Discontinued Medications: Acetaminophen (Mapap) 325 Mg Tab 325 MG PO Q4-6H PRN for PAIN SCALE 1 TO 10, TAB 0 Refills Cyclobenzaprine (Flexeril) 10 Mg Tab 10 MG PO TID PRN for MUSCLE SPASM, #90 TAB 0 Refills Hydrocodone-Acetaminophen (Hydrocodone-Acetaminophen) 7.5 Mg-325 Mg Tab 1 TAB PO Q4H PRN for PAIN, TAB 0 Refills Sildenafil (Viagra) 100 Mg Tab 100 MG PO DAILY PRN for ERECTILE DYSFUNCTION, TAB 0 Refills Bev Lynn MD February 06, 2018 13:53 Mikal Alvarez MD February 08, 2018 12:42
[2018-02-06] MEDS ORDERED: ENOX120P SQ (16:51)
[2018-02-06] MEDS ORDERED: PRAV10TA PO (16:51)
[2018-02-06] MEDS ORDERED: LISI-519 PO (16:51)
[2018-02-06] MEDS ORDERED: ASPI-516 CHEW (16:51)
--- NOTE | 2018-02-06 17:42 | ECHRPT ---
Indication: CVA/TIA CONCLUSIONS Normal left ventricular size. Mild concentric left ventricular hypertrophy. The left ventricular systolic function is hyperdynamic with an estimated ejection fraction in the ra nge of 65- 70%. [id number] mitral valve regurgitation. Trace aortic valve regurgitation. There is trace tricuspid valve regurgitation. BP: 169 / 82 HR: 71 Rhythm: Sinus MEASUREMENTS (Male / Female) Normal Values Technical Quality:Very technically difficult study 2D ECHO LV Diastolic Diameter PLAX 4.8 cm 4.2 - 5.9 / 3.9 - 5.3 cm LV Systolic Diameter PLAX 3.4 cm IVS Diastolic Thickness 1.4 cm 0.6 - 1.0 / 0.6 - 0.9 cm LVPW Diastolic Thickness 1.4 cm 0.6 - 1.0 / 0.6 - 0.9 cm LV Relative Wall Thickness 0.6 RV Internal Dim ED PLAX 2.4 cm LVOT Diameter 2.5 cm Aortic Root Diameter 3.6 cm LA Systolic Diameter LX 2.3 cm 3.0 - 4.0 / 2.7 - 3.8 cm DOPPLER AV Peak Velocity 80.0 cm/s AV Peak Gradient 2.6 mmHg AV Mean Gradient 2.0 mmHg AV Velocity Time Integral 14.8 cm LVOT Peak Velocity 83.5 cm/s LVOT Peak Gradient 2.8 mmHg LVOT Velocity Time Integral 14.8 cm AV Area Cont Eq vti 4.9 cm AV Area Cont Eq pk 5.1 cm Mitral E Point Velocity 73.1 cm/s Mitral A Point Velocity 88.4 cm/s Mitral E to A Ratio 0.8 LV E' Lateral Velocity 7.8 cm/s Mitral E to LV E' Lateral Ratio 9.4 LV E' Septal Velocity 5.1 cm/s Mitral E to LV E' Septal Ratio 14.4 PV Peak Velocity 75.9 cm/s PV Peak Gradient 2.3 mmHg FINDINGS LEFT VENTRICLE Normal left ventricular size. Mild concentric left ventricular hypertrophy. The left ventricular systolic function is hyperdynamic with an estimated ejection fraction in the ra nge of 65- 70%. RIGHT VENTRICLE Normal right ventricular size and systolic function. LEFT ATRIUM The left atrial size is normal. RIGHT ATRIUM The right atrial size is normal. ATRIAL SEPTUM The interatrial septum not well visualized. AORTA The aortic root and proximal ascending aorta are not well visualized. MITRAL VALVE [id number] mitral valve regurgitation. AORTIC VALVE Trileaflet aortic valve. Trace aortic valve regurgitation. TRICUSPID VALVE There is trace tricuspid valve regurgitation. PULMONARY VALVE No pulmonary valve regurgitation or stenosis. VESSELS The inferior vena cava was not well visualized. PERICARDIUM No pericardial effusion. Víctor Tripp MD, FACC, [facility] [place] (Electronically Signed) Final Date:06 Feb 2018 17:41
== END 2018-02-06 16:06 | DRG 65 ==
LOC: NEPC 07:44 → NEDA 13:01 → N05A 17:12
PROVIDERS: ADMIT Family Medicine; ATTEND Family Medicine
DX: I63.9 Cerebral infarction, unspecified (principal); G81.94 Hemiplegia, unspecified affecting left nondominant side; R29.810 Facial weakness; R47.81 Slurred speech; H53.2 Diplopia; I25.2 Old myocardial infarction; I25.10 Atherosclerotic heart disease of native coronary artery without angina pectoris; Z91.19 Patient's noncompliance with other medical treatment and regimen; Z79.82 Long term (current) use of aspirin; M48.00 Spinal stenosis, site unspecified; M19.90 Unspecified osteoarthritis, unspecified site; F40.240 Claustrophobia; Z87.891 Personal history of nicotine dependence
CPT/HCPCS: 70450; 70544; 70551; 80048; 80053; 80061; 82948; 83036; 84443; 85025; 85610; 85730; 93005; 93306; 93880; J1650; J2060